=== PATIENT | female | born 1955 | race Caucasian/White ===

== ENCOUNTER 2023-11-29 23:09 | Inpatient (IN) | payer OTHER, MEDICARE, SELFPAY ==
--- NOTE | ~2023-11-29 | CT_ITS ---
CT scan of the right lower extremity CLINICAL HISTORY: Erythema and warmth TECHNIQUE: Following intravenous administration of 100 cc of Omnipaque 350 contrast material, axial i maging of the right lower extremity was performed from the level of the right pelvis/hip through the right foot. Sagittal and coronal reformatted images were constructed. FINDINGS: No fracture or dislocation seen. Visualized joint spaces are intact. No distinct periosteal reaction identified. Orthopedic hardware is present at the distal fibula and distal tibia, related t o prior fracture fixation. There is a 2.3 x 1.3 cm lymph node at the anterior aspect of the proximal right thigh, though with pr obable preserved fatty hilum. Several additional shotty right inguinal lymph nodes are present. There is subcutaneous soft tissue edema/stranding in the anterior proximal right thigh/right inguinal viola on. There is additional nonspecific soft tissue edema and stranding in the popliteal fossa region and to a lesser extent throughout the calf. No focal fluid collection/abscess evident. No soft tissue ma ss identified. Visualized musculature unremarkable. There is diffuse subcutaneous soft tissue edema o f the foot. The right external iliac/common femoral artery, superficial femoral artery, profunda femoral artery, and popliteal artery are patent. No significant stenosis identified. The popliteal trifurcation is un remarkable, and the anterior tibial, posterior tibial, and peroneal arteries all appear patent. Dorsa lis pedis artery is patent. No evidence of DVT identified in the right lower extremity. Incidentally noted in the partially imaged right lower quadrant is possible fluid-filled dilated appe ndix measuring up to 12 mm in diameter. IMPRESSION: Suspected partially imaged dilated appendix in the right lower quadrant, raising suspicion for acute appendicitis. Correlate clinically. Consider dedicated abdominal pelvic CT to further evaluate. No evidence of significant arterial stenosis/occlusion or DVT in the right lower extremity. Mildly prominent right inguinal lymph nodes with subcutaneous gas stranding in this region, nonspecif ic. Findings could reflect an infectious/inflammatory process. Additional nonspecific soft tissue edema in the popliteal fossa, and to a lesser extent throughout th e calf. Findings could reflect cellulitis or other soft tissue infection versus bland edema. Case discussed with Dr. Arce at the time of this reading. Reviewed, dictated and finalized at location . IMPRESSION: Suspected partially imaged dilated appendix in the right lower quadrant, allie garner suspicion for acute appendicitis. Correlate clinically. Consider dedicated ab dominal pelvic CT to further evaluate. No evidence of significant arterial stenosis/occlusion or DVT in the right lowe r extremity. Mildly prominent right inguinal lymph nodes with subcutaneous gas stranding in this region, nonspecific. Findings could reflect an infectious/inflammatory pro cess. Additional nonspecific soft tissue edema in the popliteal fossa, and to a lesse r extent throughout the calf. Findings could reflect cellulitis or other soft t issue infection versus bland edema. Case discussed with Dr. Arce at the time of this reading.
--- NOTE | ~2023-11-29 | US_ITS ---
EXAMINATION: US venous doppler LE RT DATE: 11/30/2023 07:45 INDICATION: Right lower limb swelling. TECHNIQUE: Grayscale ultrasound images without and with compression and Doppler ultrasound images of the right lower extremity veins were obtained. COMPARISON: None. FINDINGS: The visualized portions of right common femoral vein, profunda (deep) femoral vein, femoral vein, pop liteal vein, peroneal veins, posterior tibial veins, and greater saphenous vein outflow are patent. IMPRESSION: 1. No deep venous thrombosis. Reviewed, dictated and finalized at location A.
--- NOTE | ~2023-11-29 | CT_ITS ---
Non-contrast CT scan of the Abdomen and Pelvis Clinical indication: Right inguinal/right lower quadrant pain Technique: 2.5 mm axial scans were obtained through the abdomen and pelvis without intravenous or or al contrast. Dose reduction technique was used on this scan by utilizing automated exposure control a nd iterative reconstruction technique. The dose-length product (DLP) was 554.56 mGy-cm. Findings: Images through the lung bases reveal mild right basilar atelectatic change. Small inferior hepatic cyst present. The spleen, pancreas, gallbladder, kidneys, and adrenals appear normal. There are atherosclerotic calcifications of the aorta. There is no evidence of bowel obstruction. Appendix is dilated to 11 mm, suspicious for early acute a ppendicitis. No abscess or free air. Images through the pelvis were performed. There is no evidence of ascites or lymphadenopathy. Urinary bladder unremarkable. No adnexal mass evident. Prominently distended at the proximal anterior right thigh. Impression: Findings suspicious for early acute appendicitis, as detailed above. No abscess or free air. Reviewed, dictated and finalized at [facility]. Impression: Findings suspicious for early acute appendicitis, as detailed above. No abscess or free air.
--- NOTE | ~2023-11-29 | CT_ITS ---
EXAMINATION: CT LE RT w con DATE: 12/05/2023 15:27 INDICATION: Right lower limb swelling and cellulitis. TECHNIQUE: Computed tomography (CT) of the right lower limb was performed with 100 mL Omnipaque 350 i ntravenous contrast. Automated exposure control and iterative reconstruction technique were employed. The dose-length product was 1832.38 mGy-cm. COMPARISON: Ultrasound 11/30/2023, CT 11/30/2023 FINDINGS: There is facet bone alignment is normal. No fracture. There is plate and screw fixation of distal tibia and fibula. There are screws in medial malleolus. There is widespread subcutaneous edema of right lower limb with areas of skin thickening. No abscess. There is no significant stenosis of t he arteries. The veins are unremarkable. IMPRESSION: 1. No abscess. Reviewed, dictated and finalized at location A. IMPRESSION: 1. No abscess.
--- NOTE | ~2023-11-29 | CT_ITS ---
EXAMINATION: CTA chest PE protocol DATE: 12/01/2023 18:35 INDICATION: Lower limb swelling. Elevated d-dimer. TECHNIQUE: Computed tomography (CT) pulmonary angiogram of the chest was performed with 100 mL Omnipa que-350 intravenous contrast. Additional 3D reconstructions utilizing coronal maximum intensity proje ction (MIP) were performed. Automated exposure control and iterative reconstruction technique were em ployed. The dose-length product was 214.83 mGy-cm. COMPARISON: 11/30/2023 FINDINGS: No pulmonary embolism. Unchanged linear bands of discoid atelectasis at the right lower lobe and ling cassidy. No pneumonia, pulmonary edema or pleural effusion. Heart size is normal. No pericardial effusion . Thoracic aorta is normal in caliber with no dissection. No pathologically enlarged thoracic lymphad enopathy. Mild thoracic spondylosis. T11 hemangioma. IMPRESSION: 1. No pulmonary embolism or other acute cardiopulmonary disease. Reviewed, dictated and finalized at location A.
[2023-11-29 23:12] VITALS: BP 149/82; PULSE 87; RESP 16; TEMP 36.4; O2SAT 100
--- NOTE | 2023-11-30 02:00 | ECG_ITS ---
Test Date: 2023-11-30 02:27:56 Measurements Intervals [place] Rate: 89 P: 59 IN: 179 QRS: 22 QRSD: 94 T: 48 QT: 337 QTc: 412 Interpretive Statements SINUS RHYTHM POSSIBLE LEFT ATRIAL ENLARGEMENT LOW QRS VOLTAGE IN PRECORDIAL LEADS CANNOT R/O SEPTAL INFARCT, AGE INDETERMINATE BORDERLINE ST ABNORMALITY- ANTEROLAT/INF LEADS BASELINE ARTIFACT- I, III, AVR, AVL, V1-V2 ABNORMAL ECG No previous ECG available for comparison Electronically Signed On 11-30-2023 06:29:18 CDT by Donald Meza D.O.
--- NOTE | 2023-11-30 02:01 | ED.EXTPRO ---
HPI - Extremity Problem General Chief complaint: Extremity Problem,Nontraumatic Stated complaint: right leg swelling, pain Time Seen by Provider: 11/30/23 01:05 Source: patient and family Limitations: no limitations History of Present Illness HPI Narrative: Patient is a 68-year-old female presents to the emergency department complaining of a knot in her right medial thigh with redness and warmth and and appearance of it tracking as well down the medial aspect of her thigh to her lower leg where there is also redness and warmth throughout her distal right lower leg and foot. Patient denies any preceding injuries. Patient states she had a fever today of 101. Patient notes 2 weeks ago she had a sensation of gas in her epigastric region for proximal 1 week that went away and it seemed to travel down to her pubic region for 1 week and that went away yesterday. Patient denies any recent travel. Patient denies history of blood clots. Patient denies any sick contacts. Patient denies chest pain, difficulty breathing, cough, diarrhea, urinary discomfort, abdominal pain, numbness, weakness, history of autoimmune disease. Patient admits to feeling fatigued over the past few weeks. Related Data Allergies Allergy/AdvReac Type Severity Reaction Status Date / Time Penicillins Allergy Unknown Unknown Verified 11/30/23 01:24 Sulfa (Sulfonamide Allergy Unknown Unknown Verified 11/30/23 01:24 Antibiotics) Review of Systems Review of Systems: A 10 system review of systems was completed on the patient and is negative except for what is stated in the HPI. Nursing and ancillary documentation was reviewed. PMFSH Comments At time of signature, I have reviewed and agree with nursing past medical, surgical, social and family history unless otherwise noted. Please see the nursing chart for further information. There is no relevant family history pertinent to the presenting complaint. Exam Narrative: CONST: No acute distress. Well nourished. HENMT: Head is normocephalic and atraumatic. Moist mucous membranes. No posterior oropharynx erythema. EYES: No conjunctival icterus, injection, or pallor. PERRL. NECK: No meningeal signs. RESP: Able to speak in full sentences. Normal respiratory effort. CTAB. CARDIO: Regular rate. Regular rhythm. 2+ DP and radial pulses bilaterally. GI: Nondistended. No tenderness to palpation. Soft. : No CVA tenderness to palpation. SKIN: Mild erythema and warmth and mild tenderness to palpation of the right proximal medial thigh with mild induration, no crepitus or fluctuance, there appears to be a scant amount of tracking redness along the medial thigh distally from this area and then there is redness and warmth along the anterior distal right lower leg and the dorsum of the right foot. All of the areas of erythema johanny. NEURO: Oriented x3. Moves all extremities. EXTREM/MSK/BACK: Trace bilateral lower extremity pitting edema. PSYCH: Normal affect. Course Vital Signs Vital signs: Vital Signs Temperature 97.6 F 11/29/23 23:12 Pulse Rate 87 11/29/23 23:12 Respiratory Rate 16 11/29/23 23:12 Blood Pressure 149/82 H 11/29/23 23:12 Pulse Oximetry 100 11/29/23 23:12 Oxygen Delivery Room Air 11/29/23 23:12 Temperature 99.3 F 11/30/23 07:08 Pulse Rate 81 11/30/23 06:36 Respiratory Rate 18 11/30/23 06:36 Blood Pressure 134/83 11/30/23 06:36 Pulse Oximetry 100 11/30/23 06:36 Oxygen Delivery Room Air 11/29/23 23:12 MDM - Extremity (Nontraumatic) MDM Narrative Medical decision making narrative: Patient presents with the above complaint. Initial vitals are remarkable for no significant abnormalities. Physical examination as noted above. Differential diagnosis includes was not limited to: Cellulitis, lymphangitis, DVT, ACS, metabolic derangement, UTI. Plan discussed: Laboratory analysis, EKG, CT lower extremity. CT of the abdomen pelvis obtained given the possibl
[2023-11-30] MEDS: ACETAMINOPHEN 500 MG TABLET 1000 MG PO (02:22)
[2023-11-30 02:38] LABS: Basophils Percent Auto 0.3 % (0.2-1.2); Eosinophils Percent Auto 0.1 % (0-4.4); Hematocrit 44.5 % (37.0-47.0); Hemoglobin 15.3 g/dL (12.0-15.0); Immature Granulocyte Absolute 0.07 K/mm3 (0.00-0.031); Immature Granulocyte Percent A 0.5 % (0-0.5); Lymphocytes Absolute Auto 0.92 K/mm3 (0.9-3.2); Lymphocytes Percent Auto 7.1 % (18.3-44.2); Mean Corpuscular HGB Conc 34.4 g/dl (32-36); Mean Corpuscular Hemoglobin 31.4 pg (26-34); Mean Corpuscular Volume 91.2 fl (80-100); Mean Platelet Volume 8.7 fl (7.4-10.4); Monocytes Absolute Auto 0.4 K/mm3 (0.1-0.6); Monocytes Percent Auto 2.9 % (2.6-8.5); Neutrophils Absolute Auto 11.5 K/mm3 (1.3-6.7); Neutrophils Percent Auto 89.1 % (45.5-73.1); Platelet Count Result 236 k/mm3 (150-375); Red Blood Count 4.88 M/mm3 (4.2-5.4); Red Cell Distribution Width 13.1 % (11.5-14.5)
[2023-11-30 02:48] LABS: Lipase 38 U/L (23-300); Magnesium 1.9 mg/dL (1.6-2.3)
[2023-11-30 02:55] LABS: INR 1.1; Prothrombin Time 14.4 Seconds (11.1-14.7)
[2023-11-30 02:56] LABS: Lactic Acid Reflex 1.3 mmol/L (0.7-2.0); Partial Thromboplastin Time 33.3 Seconds (22.3-36.8)
[2023-11-30 03:00] LABS: Troponin I < 0.012 ng/mL (0.000-0.034)
[2023-11-30 03:14] LABS: Alanine Aminotransferase 50 U/L (6-35); Albumin Level 4.6 g/dL (3.5-5.1); Alkaline Phosphatase 108 U/L (38-126); Anion Gap 13 mmol/L (4-12); Aspartate Amino Transferase 64 U/L (14-36); Bilirubin,Total 0.6 mg/dL (0.2-1.3); Blood Urea Nitrogen 10 mg/dL (7-17); CRP 7.7 mg/dL (<1.0); Calcium 8.9 mg/dL (8.4-10.2); Carbon Dioxide 25 mmol/L (22-30); Chloride 96 mmol/L (98-107); Creatine Kinase 50 U/L (30-135); Estimated CRCL calculation 65 ml/min; Estimated Glomerular Filt Rate > 60; Glucose 106 mg/dL (65-110); Potassium 3.8 mmol/L (3.4-5.0); Sodium 134 mmol/L (137-145)
[2023-11-30 05:00] LABS: Appearance Urine Turbid (Clear); Bacteria Urine 4+ /hpf; Bilirubin Urine Negative (Negative); Blood Urine 2+ (Negative); Color Urine Yellow (Yellow); Glucose Urine UA Negative (Negative); Ketones Urine 2+ mg/dL (Negative); Leukocyte Esterase Ur 3+ LEU/UL (Negative); Nitrate Urine Positive (Negative); Non Pathogenic Casts 0-2; Protein Urine 1+ mg/dL (Negative); RBC Urine 0-2 /hpf (0-2); Specific Grav Ur 1.019 (1.001-1.035); Squamous Epithelial Cell Urine Occasional /hpf (Few); Urobilinogen Urine 0.2 mg/dL (<2.0); WBC Urine >100 /hpf (0-3); pH Urine 5.5 (5.0-9.0)
[2023-11-30 05:19] LABS: Add Urine Microscopic? YES
[2023-11-30] MEDS: ENOXAPARIN 80 MG/0.8 ML SYRINGE SUB-Q (06:10)
[2023-11-30 06:36] VITALS: BP 134/83; PULSE 81; RESP 18; O2SAT 100
[2023-11-30 07:08] VITALS: TEMP 37.4
[2023-11-30] MEDS: DEXTROSE 5%/0.9% SOD CHL 1,000 ML 100 ML IV CONT (08:51)
--- NOTE | 2023-11-30 08:57 | PM.IMHP ---
H&P: HPI History of Present Illness Date/Time: 11/30/23 08:57 Chief Complaint: Right leg swelling and pain, abdomen pain Narrative: 68 years old lady with history of hypertension, high seizure, breast cancer, present ED with a chief complaint of redness, swelling of the right lower extremity. Patient noticed redness, swelling and pain of right thigh yesterday, and redness and swelling pain develops quickly down to the lower extremity. Patient has intermittent fever and chills. And patient also has intermittent abdomen pain locating in epigastric and moving down to the suprapubic region in past 2 weeks. Patient denies chest pain shortness of breath, headache, focal weakness. Patient had fever 101 and home. Patient came to ED for evaluation treatment. Upon arrival to ED, patient had low-grade fever 99.3, leukocytosis 15,300 with left shift, UA shows pyuria, CT scan suggest early acute appendicitis. 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 Surgical History Surgical History History of brain surgery Family History Family History Father Diverticulitis Sibling Diverticulitis Other Appendicitis with abscess Appendicitis Social History Social History Smoking status: Never smoker Alcohol intake: never Substance use: never Substance use type: does not use Do You Feel Safe in your Home?: Yes Lack of Transportation: No Lack of Food: Never True Current Housing: I Have Housing Concerned About Future Housing: No Difficulty Paying Gas/Electric Bills: No Difficulty Paying for Meds: No Currently Unemployed: No Education: Master's Degree or Higher Difficulty w/ Childcare or Family Care: No Spiritual care concerns: No Meds Home Medications and Allergies Home Medications Medication Instructions Recorded Confirmed Type amitriptyline 50 mg tablet 50 mg PO DAILY 11/30/23 11/30/23 History estradiol 0.01% (0.1 mg/gram) 1 applic vaginal 3XW 11/30/23 11/30/23 History vaginal cream lamotrigine 150 mg tablet 150 mg PO BID 11/30/23 11/30/23 History lisinopril 20 1 tablet PO DAILY 11/30/23 11/30/23 History mg-hydrochlorothiazide 25 mg tablet raloxifene 60 mg tablet 60 mg PO DAILY 11/30/23 11/30/23 History Allergies Allergy/AdvReac Type Severity Reaction Status Date / Time Penicillins Allergy Unknown Unknown Verified 11/30/23 01:24 Sulfa (Sulfonamide Allergy Unknown Unknown Verified 11/30/23 01:24 Antibiotics) Vital Signs Vital Signs - 24 hr 11/29/23 23:12 11/30/23 06:36 11/30/23 07:08 Temperature 97.6 F 99.3 F Pulse Rate 87 81 Respiratory Rate 16 18 Blood Pressure 149/82 H 134/83 Pulse Oximetry 100 100 Oxygen Delivery Room Air Exam Narrative: GENERAL: Pleasant, in no acute distress. Well-nourished. - EYES: EOMI. Anicteric. - HENT: Moist mucous membranes. - LUNGS: Clear to auscultation bilaterally, no wheezing, rhonchi, or rales. - CARDIOVASCULAR: Regular rate and rhythm. No murmur. No JVD. - ABDOMEN: Soft, right lower quadrant tender and non-distended. No palpable masses. - EXTREMITIES: No edema. Peripheral pulses 2+. Non-tender. - NEUROLOGIC: No focal neurological deficits. CN II-XII grossly intact. - PSYCHIATRIC: Awake, Alert and oriented x 3. Appropriate mood and affect. - SKIN: Redness tender swelling of the skin of inner thigh down to the lower extremity above the ankle of right lower extremity - LYMPH: No cervical lymphadenopathy. H&P: Results Labs Labs: Short CBC 11/30/23 Range/Units 02:31 WBC 13.0 H (4.5-10.0) K/mm3 Hgb 15.3 H (12.0-15.0) g/dL Hct 44.5 (37.0-47.0)
[2023-11-30 09:05] VITALS: BP 156/85; PULSE 95; RESP 17; O2SAT 99
[2023-11-30] MEDS: DOXYCYCLINE 100 MG/NS 100 ML 100 MG/100 ML BAG IVPB (09:42)
[2023-11-30 10:11] VITALS: BMI 28.2
--- NOTE | 2023-11-30 10:15 | ADMGEN ---
This patient, Devora Martinez, was admitted to [facility] Surg Room 311-01 at 1000. Patient/family oriented to hospital policies and general routines including ID bracelet, bed and alarms, visiting hours, pain management, procedures, bathroom and other care routines, personal items, smoking policy, room service/diet, and visiting hours. Information on how to activate the Rapid Response Team has been discussed. Patient/Family are encouraged to report perceived risks to care and to ask questions if they do not understand what they are told or what they should do.
--- NOTE | 2023-11-30 10:38 | PM.CNGS ---
Assessment and Plan Assessment and plan (1) Abnormal CT of the abdomen: Code(s): R93.5 - Abnormal findings on diagnostic imaging of other abdominal regions, including retroperitoneum Status: Acute Assessment and Plan: We were consulted for incidental findings of a dilated appendix on the CT scan. The appendix is dilated to 11 mm but without any inflammatory stranding or other findings to suggest acute appendicitis. She is not having any abdominal pain and no tenderness on exam. No acute surgical abdomen that would require an emergent appendectomy. We would recommend to continue with IV antibiotics and monitor clinically. Repeat labs tomorrow morning. (2) Leukocytosis: Code(s): D72.829 - Elevated white blood cell count, unspecified Status: Acute Assessment and Plan: Leukocytosis with WBC count 13,000. Vital signs stable in the ER and she was afebrile on arrival. Likely related to the cellulitis in the right lower extremity and possibly the UTI (3) Acute UTI: Code(s): N39.0 - Urinary tract infection, site not specified Status: Acute Assessment and Plan: Continue IV antibiotics. Urine culture pending. (4) Lymphadenopathy, inguinal: Code(s): R59.0 - Localized enlarged lymph nodes Status: Acute (5) Cellulitis: Qualifiers: Laterality: right Site of cellulitis: extremity Site of cellulitis of extremity: lower extremity Qualified Code(s): L03.115 - Cellulitis of right lower limb Code(s): L03.90 - Cellulitis, unspecified Status: Acute Assessment and Plan: Continue IV antibiotics per Hospitalist. Plan I have discussed the patient's case and plan of care with Dr. Treviño. Thank you for allowing us to see the patient in consultation and we will continue to follow along with you. History of Present Illness Consult details Consult date: 11/30/23 Reason for consult: other (Dilated appendix on CT) Requesting physician: Janeth Welch MD Narrative: This is a 68-year-old female who presented to the ED today with complaints of right lower extremity swelling and redness. She reports having abdominal pain for the past 2 weeks. Initially, her abdominal pain was in the upper abdomen and was mild. No aggravating or alleviating factors. After about a week, the pain migrated to her lower abdomen primarily in the suprapubic area. She also noticed dysuria. She reports a history of frequent UTIs requiring treatment about every 6-8 weeks. Her pain continued to be constant, but was tolerable. She developed a fever of 101F two days ago and called her primary care provider and spoke with someone on the phone but was not evaluated in person. She was prescribed Macrobid, which she finished 3 days ago, and they ordered outpatient labs for possible Lyme's disease. She was not started on any other treatment. She reports having concerns for a tick bite, because [place] and are exposed to ticks often. She has had multiple ticks on her but has not noticed a rash and is unable to tell how long they have been attached due to frequent exposure to the outdoors. She went to have the labs drawn yesterday and after having the labs, she noticed some swelling and tenderness in her right groin. Yesterday was the first day her abdominal pain was better. She reports it had completely resolved with no pain yesterday. She noticed some erythema in her upper medial right thigh and groin swelling. She went home and by the time she showed her and took her sock off, the redness and swelling had extended down her right leg to her foot. He then prompted her to come into the ED for evaluation. Labs showed a WBC count of 13,000, PT 14.4, INR 1.1, PTT 33.3, D-dimer 3.5, AST 64, ALT 50, CRP 7.7. Troponin negative. UA grossly abnormal and with further questions, the patient reports her dysuria has returned after finishing the macrobid a few days ago. CT scan of the right lower extremi
[2023-11-30] MEDS: metroNIDAZOLE 500 MG/ISO 100ML 500 MG/100 ML BAG 100 MG IVPB ×2 (11:35→20:51)
[2023-11-30] MEDS: lamoTRIgine 50 MG TABLET PO ×2 (13:04→20:52)
[2023-11-30] MEDS: lamoTRIgine 100 MG TABLET PO ×2 (13:04→20:52)
[2023-11-30 14:00] VITALS: BP 140/77; PULSE 103; RESP 20; TEMP 38.2; O2SAT 96
[2023-11-30] MEDS: hydroCHLOROthiazide 12.5 MG CAPSULE PO (14:26)
[2023-11-30] MEDS: lisinopriL 20 MG TABLET PO (14:26)
[2023-11-30] MEDS: CEFEPIME 2 GM/NS 50 ML 2 GM/50 ML BAG IVPB ×2 (15:00→22:06)
[2023-11-30] MEDS: VANCOMYCIN 1,500 MG/NS 500 ML 1,500 MG/500 ML BAG 250 MG IVPB (16:09)
[2023-11-30] MEDS: oxyCODONE/ACETAMINOPHEN (*CRX) 5-325 MG TABLET 1 TABLET PO (16:30)
[2023-11-30] MEDS: ONDANSETRON INJ 4 MG/2 ML VIAL IV PUSH (20:57)
[2023-11-30 21:00] VITALS: O2SAT 99
[2023-11-30 21:13] VITALS: BP 115/64; PULSE 87; RESP 12; TEMP 36.8; O2SAT 99
[2023-12-01] MEDS: DEXTROSE 5%/0.9% SOD CHL 1,000 ML 100 ML IV CONT ×2 (01:37→21:38)
[2023-12-01] MEDS: metroNIDAZOLE 500 MG/ISO 100ML 500 MG/100 ML BAG 100 MG IVPB ×3 (01:38→17:03)
[2023-12-01 05:06] VITALS: BP 128/74; PULSE 99; RESP 14; TEMP 37; O2SAT 91
[2023-12-01] MEDS: CEFEPIME 2 GM/NS 50 ML 2 GM/50 ML BAG IVPB ×3 (05:23→21:35)
[2023-12-01 06:17] LABS: Basophils Percent Auto 0.3 % (0.2-1.2); Eosinophils Percent Auto 0.1 % (0-4.4); Hematocrit 36.7 % (37.0-47.0); Hemoglobin 12.5 g/dL (12.0-15.0); Immature Granulocyte Absolute 0.07 K/mm3 (0.00-0.031); Immature Granulocyte Percent A 0.6 % (0-0.5); Lymphocytes Absolute Auto 1.69 K/mm3 (0.9-3.2); Lymphocytes Percent Auto 15.3 % (18.3-44.2); Mean Corpuscular HGB Conc 34.1 g/dl (32-36); Mean Corpuscular Hemoglobin 30.6 pg (26-34); Mean Corpuscular Volume 89.7 fl (80-100); Monocytes Absolute Auto 0.7 K/mm3 (0.1-0.6); Monocytes Percent Auto 6.3 % (2.6-8.5); Neutrophils Absolute Auto 8.5 K/mm3 (1.3-6.7); Neutrophils Percent Auto 77.4 % (45.5-73.1); Platelet Count Result 200 k/mm3 (150-375); Red Blood Count 4.09 M/mm3 (4.2-5.4); Red Cell Distribution Width 13.5 % (11.5-14.5)
[2023-12-01 06:30] LABS: Anion Gap 8 mmol/L (4-12); Blood Urea Nitrogen 9 mg/dL (7-17); Calcium 7.7 mg/dL (8.4-10.2); Carbon Dioxide 23 mmol/L (22-30); Chloride 98 mmol/L (98-107); Estimated CRCL calculation 65 ml/min; Estimated Glomerular Filt Rate > 60; Glucose 107 mg/dL (65-110); Potassium 3.2 mmol/L (3.4-5.0); Sodium 129 mmol/L (137-145)
[2023-12-01] MEDS: VANCOMYCIN 1,500 MG/NS 500 ML 1,500 MG/500 ML BAG 250 MG IVPB (06:38)
[2023-12-01] MEDS: RALOXIFENE HCL (*CHEMO) 60 MG TABLET PO (08:39)
[2023-12-01] MEDS: lisinopriL 20 MG TABLET PO (08:39)
[2023-12-01] MEDS: lamoTRIgine 100 MG TABLET PO ×2 (08:39→21:35)
[2023-12-01] MEDS: lamoTRIgine 50 MG TABLET PO ×2 (08:39→21:35)
[2023-12-01] MEDS: hydroCHLOROthiazide 12.5 MG CAPSULE PO (08:39)
[2023-12-01] MEDS: AMITRIPTYLINE HCL 25 MG TABLET 50 MG PO (08:39)
[2023-12-01] MEDS: oxyCODONE/ACETAMINOPHEN (*CRX) 5-325 MG TABLET 1 TABLET PO ×3 (11:06→21:35)
[2023-12-01] MEDS: cefTRIAXone 2 GM/NS 100 ML 2 GM/100 ML BAG IVPB (12:46)
--- NOTE | 2023-12-01 13:23 | PM.PNGS ---
Progress Note: A&P Assessment and Plan (1) Abnormal CT of the abdomen: Code(s): R93.5 - Abnormal findings on diagnostic imaging of other abdominal regions, including retroperitoneum Status: Acute Assessment and Plan: We were consulted for incidental findings of a dilated appendix on the CT scan. The appendix is dilated to 11 mm but without any inflammatory stranding or other findings to suggest acute appendicitis. She is still not having any abdominal pain and no tenderness on exam. No acute surgical abdomen that would require an emergent appendectomy. Her WBC count is down to 11,000 today from 13,000 yesterday. Continue IV antibiotics and monitor clinically. No plans for surgical intervention at this time. (2) Leukocytosis: Code(s): D72.829 - Elevated white blood cell count, unspecified Status: Acute Assessment and Plan: Improving. More likely related to the cellulitis and UTI. Continue antibiotics per primary service. (3) Acute UTI: Code(s): N39.0 - Urinary tract infection, site not specified Status: Acute Assessment and Plan: Continue antibiotics per Hospitalist. (4) Cellulitis: Qualifiers: Laterality: right Site of cellulitis: extremity Site of cellulitis of extremity: lower extremity Qualified Code(s): L03.115 - Cellulitis of right lower limb Code(s): L03.90 - Cellulitis, unspecified Status: Acute Assessment and Plan: Continue IV antibiotics per Hospitalist. Plan I have discussed the patient's case and plan of care with Dr. Treviño. Subjective Subjective Date/Time Seen: 12/01/23 13:23 Patient reports: no new complaints, tolerating a regular diet and fever (Tmax 100.7F at 1400 yesterday) Interval history: Still no abdominal pain today or through the night. Feels like her right groin and right leg pain and swelling is worse today. WBC down to 11,000 from 13,000. Exam Const: General: no acute distress Orientation/consciousness: patient oriented x3 GI: Inspection: non-distended GI Palp: Yes Soft to palpation, No Tenderness to palpation present (GI) (no tenderness in the abdomen even with deep palpation in the RLQ), No Guarding due to palpation present (GI) and No Rebound tenderness present Auscultation: normal bowel sounds : Other: Right inguinal lymphadenopathy noted, nontender Skin: Other: Diffuse right lower extremity edema that is mild and progressively gets worse into the lower leg/foot. Erythema in the right medial thigh that extends down the entire lower leg and into the foot. Erythema is more widespread in the thigh today and still circumferential around the lower leg and calf. Appearance of the darker red/purple petechial rash in the lower leg and foot is unchanged. No pain with movement of her ankle or toes and full ROM. Slight decreased flexion of the knee due to swelling. She has more tenderness today in the right lower leg more focally in the posterior calf. Sensation in the right lower leg completely intact. No wounds, no drainage, no crepitus, no fluctuant areas. Extrem: Right lower extremity: edema Objective Data Vital Signs Vital Signs: Vital Signs - 24 hr 11/30/23 14:00 11/30/23 21:13 11/30/23 21:00 Temperature 100.7 F H 98.2 F Pulse Rate 103 H 87 Respiratory Rate 20 12 Blood Pressure 140/77 115/64 Pulse Oximetry 96 99 99 Oxygen Delivery Room Air 11/30/23 20:00 12/01/23 05:06 12/01/23 08:00 Temperature 98.6 F Pulse Rate 99 Respiratory Rate 14 Blood Pressure 128/74 Pulse Oximetry 91 Oxygen Delivery Room Air Room Air Intake/Output Intake/Output: Intake & Output 11/28/23 11/29/23 11/30/23 12/01/23 23:59 23:59 23:59 23:59 Intake Total 1230 2300 Balance 1230 2300 Meds/Results Medications: Active Medications Generic Name Dose Route Start Last Admin Trade Name Freq PRN Reason Stop Dose Admin Amitriptyline HCl 50 mg 12/01/23 09:00
--- NOTE | 2023-12-01 14:46 | PM.IMPN ---
Progress Note: A&P Assessment and Plan (1) Sepsis: Code(s): A41.9 - Sepsis, unspecified organism Status: Acute Assessment and Plan: 12/01/23: Patient originally meeting sepsis criteria with a temp 100.7?, pulse 103, respiratory rate 20, initial white blood cell count 13.0, multiple sources infection including cellulitis, acute appendicitis, urinary tract infection Blood and urine cultures were obtained and are pending Currently on cefepime, Flagyl, vancomycin, clindamycin Tick-borne illness panel pending Initial lactate 1.3 CRP 7.7 (2) Cellulitis: Qualifiers: Laterality: right Site of cellulitis: extremity Site of cellulitis of extremity: lower extremity Qualified Code(s): L03.115 - Cellulitis of right lower limb Code(s): L03.90 - Cellulitis, unspecified Status: Acute Assessment and Plan: 12/01/23: Extensive cellulitis from the groin to the ankle of her right leg with erythema, warmth, tenderness, swelling that is becoming circumferential Continue IV antibiotics General surgery following (3) Appendicitis: Qualifiers: Appendicitis type: unspecified Qualified Code(s): K37 - Unspecified appendicitis Code(s): K37 - Unspecified appendicitis Status: Acute Assessment and Plan: 12/01/23: CT of the abdomen pelvis showed acute appendicitis Treating conservatively with IV antibiotics No surgical intervention needed at this time, general surgery following (4) Acute UTI: Code(s): N39.0 - Urinary tract infection, site not specified Status: Acute Assessment and Plan: 12/01/23: UA showed 1+ urine protein, 2+ urine ketones, 2+ urine blood, positive nitrate, 3+ leukocytes, greater than 100 urine WBC, 4+ bacteria. Urine culture pending Continue IV antibiotics (5) Lymphadenopathy, inguinal: Code(s): R59.0 - Localized enlarged lymph nodes Status: Acute Assessment and Plan: 12/01/23: Noted on CT Likely reactive to systemic infections (6) Elevated d-dimer: Code(s): R79.89 - Other specified abnormal findings of blood chemistry Status: Acute Assessment and Plan: 12/01/23: D-dimer 3.5 Venous Doppler bilateral lower extremities were negative for DVT CTA the chest ordered for rule out PE, low concern Time Spent With Patient Time with patient: Greater than 35 minutes Subjective Date/time seen: 12/01/23 14:46 Interval history: Interval history: This is a 68-year-old female who presented to the hospital on 11/30/2023 with right leg swelling, pain and abdomen pain. Workup in the hospital included a lower extremity CT which shown a dilated appendix in the right lower quadrant raising suspicion for acute appendicitis, no evidence of significant arterial stenosis/occlusion or DVT in the right lower extremity, mild prominent right inguinal lymph nodes with subcutaneous gas stranding in the region, additional nonspecific soft tissue edema in the popliteal fossa and to a lesser extent throughout the calf. Abdomen pelvis CT shown findings for early acute appendicitis. Venous Doppler was negative for DVT. Initial labs showed a white blood cell count of 13.0, hemoglobin 15.3, D-dimer 3.5, sodium 134, AST 64, ALT 50, troponin was negative, lipase 38. UA was obtained and showed 1+ urine protein, 2+ urine ketones, 2+ urine blood, positive nitrate, 3+ leukocytes, greater than 100 urine wbc's, 4+ urine bacteria. Tick-borne disease panel pending. Urine culture is also pending. EKG showing normal sinus rhythm with QTC of 384 and rate 89. Patient was originally started on cefepime, Flagyl, doxycycline. She was changed to cefepime, Flagyl, vancomycin yesterday. General surgery was consulted for the acute appendicitis and right lower extremity cellulitis and agrees that there is nothing surgical on either at this time. 12/01/23: Patient denies any fever, chills, nausea, vomiting, diarrhea, abdominal pain, chest pain, arun
[2023-12-01 14:55] VITALS: BP 135/81; PULSE 86; RESP 16; TEMP 36.7; O2SAT 99
[2023-12-01] MEDS: CLINDAMYCIN 900 MG/D5W 50 ML 900 MG/50 ML PIGGYBACK 50 MG IVPB ×2 (17:00→23:06)
[2023-12-01 22:00] VITALS: BP 144/82; PULSE 91; RESP 18; TEMP 36.8; O2SAT 100
[2023-12-02] MEDS: VANCOMYCIN 1,500 MG/NS 500 ML 1,500 MG/500 ML BAG 200 MG IVPB (00:36)
[2023-12-02] MEDS: metroNIDAZOLE 500 MG/ISO 100ML 500 MG/100 ML BAG 100 MG IVPB ×2 (03:09→09:15)
[2023-12-02] MEDS: CEFEPIME 2 GM/NS 50 ML 2 GM/50 ML BAG IVPB ×3 (05:51→21:06)
[2023-12-02 05:55] VITALS: BP 139/73; PULSE 91; RESP 16; TEMP 36.7; O2SAT 97
[2023-12-02 05:56] LABS: Estimated CRCL calculation 65 ml/min; Estimated Glomerular Filt Rate > 60
[2023-12-02] MEDS: CLINDAMYCIN 900 MG/D5W 50 ML 900 MG/50 ML PIGGYBACK 50 MG IVPB (06:39)
--- NOTE | 2023-12-02 07:40 | P.PNIM_ITS ---
Progress Note: A&P Assessment and Plan (1) Sepsis: Code(s): A41.9 - Sepsis, unspecified organism Status: Acute Assessment and Plan: 12/01/23: * Patient originally meeting sepsis criteria with a temp 100.7?, pulse 103, respiratory rate 20, initial white blood cell count 13.0, multiple sources infection including cellulitis, acute appendicitis, urinary tract infection * Blood and urine cultures were obtained and are pending * Currently on cefepime, Flagyl, vancomycin, clindamycin * Tick-borne illness panel pending * Initial lactate 1.3 * CRP 7.7 12/02/23: * Blood cultures showing no growth today preliminary read * Culture showing E coli preliminary read * WBC today down to 10.6 * Serology is still pending on the tick-borne illness panel (2) Cellulitis: Qualifiers: Laterality: right Site of cellulitis: extremity Site of cellulitis of extremity: lower extremity Qualified Code(s): L03.115 - Cellulitis of right lower limb Code(s): L03.90 - Cellulitis, unspecified Status: Acute Assessment and Plan: 12/01/23: * Extensive cellulitis from the groin to the ankle of her right leg with erythe ma, warmth, tenderness, swelling that is becoming circumferential * Continue IV antibiotics * General surgery following 12/02/23: * White blood cell count today down to 10.6, C reactive protein 24.4 * Right leg cellulitis appears to be improving however there are notable blisters to the back of her right calf which is likely due to friction * Place PICC line due to poor access * Continue IV antibiotics for now, consider transitioning to oral tomorrow * General surgery following (3) Appendicitis: Qualifiers: Appendicitis type: unspecified Qualified Code(s): K37 - Unspecified appendicitis Code(s): K37 - Unspecified appendicitis Status: Acute Assessment and Plan: 12/01/23: * CT of the abdomen pelvis showed acute appendicitis * Treating conservatively with IV antibiotics * No surgical intervention needed at this time, general surgery following 12/02/23: * General surgery following * Continue IV antibiotic (4) Acute UTI: Code(s): N39.0 - Urinary tract infection, site not specified Status: Acute Assessment and Plan: 12/01/23: * UA showed 1+ urine protein, 2+ urine ketones, 2+ urine blood, positive nitrate, 3+ leukocytes, greater than 100 urine WBC, 4+ bacteria. * Urine culture pending * Continue IV antibiotics 12/02/23: * Urine culture showing E coli preliminary read * Continue IV antibiotics (5) Lymphadenopathy, inguinal: Code(s): R59.0 - Localized enlarged lymph nodes Status: Acute Assessment and Plan: 12/01/23: * Noted on CT * Likely reactive to systemic infections 12/02/23: * No change (6) Elevated d-dimer: Code(s): R79.89 - Other specified abnormal findings of blood chemistry Status: Acute Assessment and Plan: 12/01/23: * D-dimer 3.5 * Venous Doppler bilateral lower extremities were negative for DVT * CTA the chest ordered for rule out PE, low concern 12/02/23: * Chest CTA was negative for PE Time Spent With Patient Time with patient: 25 - 35 minutes Subjective Date/time seen: 12/02/23 07:40 Interval history: Interval history: This is a 68-year-old female who presented to the hospital on 11/30/2023 with right leg swelling, pain and abdomen pain. Workup in the hospital included a lower extremity CT which shown a dilated appendix in the right lower quadrant raising suspicion f
--- NOTE | 2023-12-02 07:40 | PM.IMPN ---
Progress Note: A&P Assessment and Plan (1) Sepsis: Code(s): A41.9 - Sepsis, unspecified organism Status: Acute Assessment and Plan: 12/01/23: Patient originally meeting sepsis criteria with a temp 100.7?, pulse 103, respiratory rate 20, initial white blood cell count 13.0, multiple sources infection including cellulitis, acute appendicitis, urinary tract infection Blood and urine cultures were obtained and are pending Currently on cefepime, Flagyl, vancomycin, clindamycin Tick-borne illness panel pending Initial lactate 1.3 CRP 7.7 12/02/23: Blood cultures showing no growth today preliminary read Culture showing E coli preliminary read WBC today down to 10.6 Serology is still pending on the tick-borne illness panel (2) Cellulitis: Qualifiers: Laterality: right Site of cellulitis: extremity Site of cellulitis of extremity: lower extremity Qualified Code(s): L03.115 - Cellulitis of right lower limb Code(s): L03.90 - Cellulitis, unspecified Status: Acute Assessment and Plan: 12/01/23: Extensive cellulitis from the groin to the ankle of her right leg with erythema, warmth, tenderness, swelling that is becoming circumferential Continue IV antibiotics General surgery following 12/02/23: White blood cell count today down to 10.6, C reactive protein 24.4 Right leg cellulitis appears to be improving however there are notable blisters to the back of her right calf which is likely due to friction Place PICC line due to poor access Continue IV antibiotics for now, consider transitioning to oral tomorrow General surgery following (3) Appendicitis: Qualifiers: Appendicitis type: unspecified Qualified Code(s): K37 - Unspecified appendicitis Code(s): K37 - Unspecified appendicitis Status: Acute Assessment and Plan: 12/01/23: CT of the abdomen pelvis showed acute appendicitis Treating conservatively with IV antibiotics No surgical intervention needed at this time, general surgery following 12/02/23: General surgery following Continue IV antibiotic (4) Acute UTI: Code(s): N39.0 - Urinary tract infection, site not specified Status: Acute Assessment and Plan: 12/01/23: UA showed 1+ urine protein, 2+ urine ketones, 2+ urine blood, positive nitrate, 3+ leukocytes, greater than 100 urine WBC, 4+ bacteria. Urine culture pending Continue IV antibiotics 12/02/23: Urine culture showing E coli preliminary read Continue IV antibiotics (5) Lymphadenopathy, inguinal: Code(s): R59.0 - Localized enlarged lymph nodes Status: Acute Assessment and Plan: 12/01/23: Noted on CT Likely reactive to systemic infections 12/02/23: No change (6) Elevated d-dimer: Code(s): R79.89 - Other specified abnormal findings of blood chemistry Status: Acute Assessment and Plan: 12/01/23: D-dimer 3.5 Venous Doppler bilateral lower extremities were negative for DVT CTA the chest ordered for rule out PE, low concern 12/02/23: Chest CTA was negative for PE Time Spent With Patient Time with patient: 25 - 35 minutes Subjective Date/time seen: 12/02/23 07:40 Interval history: Interval history: This is a 68-year-old female who presented to the hospital on 11/30/2023 with right leg swelling, pain and abdomen pain. Workup in the hospital included a lower extremity CT which shown a dilated appendix in the right lower quadrant raising suspicion for acute appendicitis, no evidence of significant arterial stenosis/occlusion or DVT in the right lower extremity, mild prominent right inguinal lymph nodes with subcutaneous gas stranding in the region, additional nonspecific soft tissue edema in the popliteal fossa and to a lesser extent throughout the calf. Abdomen pelvis CT shown findings for early acute appendicitis. Venous Doppler was negative for DVT. Initial labs showed a white blood cell count of 13.0, hemoglobin 1
--- NOTE | 2023-12-02 07:43 | WPDPN ---
Progress Note: A&P Assessment and Plan (1) Abnormal CT of the abdomen: Code(s): R93.5 - Abnormal findings on diagnostic imaging of other abdominal regions, including retroperitoneum Status: Acute Assessment and Plan: Appendix dilated on CT scan, no pain and no inflammation on CT. No need for surgical management. (2) Cellulitis: Qualifiers: Laterality: right Site of cellulitis: extremity Site of cellulitis of extremity: lower extremity Qualified Code(s): L03.115 - Cellulitis of right lower limb Code(s): L03.90 - Cellulitis, unspecified Status: Acute Assessment and Plan: Stable cellulitis of the RLE, no need for surgical management. IV antibiotics as per hospitalist service. Call again if surgery needs to re-evaluate. Subjective Date/time seen: 12/02/23 07:43 Interval history: Stable. No acute changes overnight. WBC slightly lower today. No abd pain. RLQ redness about the same. Exam Extrem: Other: Right lower extremity redness swelling stable. No fluctuant areas. No draining. Objective Data Vital Signs Vital Signs: Vital Signs - 24 hr 12/01/23 08:00 12/01/23 14:55 12/01/23 22:00 Temperature 36.7 C 36.8 C Pulse Rate 86 91 Respiratory Rate 16 18 Blood Pressure 135/81 144/82 H Pulse Oximetry 99 100 Oxygen Delivery Room Air 12/02/23 05:55 Temperature 36.7 C Pulse Rate 91 Respiratory Rate 16 Blood Pressure 139/73 Pulse Oximetry 97 Oxygen Delivery Intake/Output Intake/Output: Intake & Output 11/29/23 11/30/23 12/01/23 12/02/23 23:59 23:59 23:59 23:59 Intake Total 1230 4190 630 Balance 1230 4190 630 Meds/Results Medications: Active Medications Generic Name Dose Route Start Last Admin Trade Name Freq PRN Reason Stop Dose Admin Amitriptyline HCl 50 mg 12/01/23 09:00 12/01/23 08:39 Amitriptyline Hcl 25 Mg Tablet PO 50 mg DAILY ALFREDO Administration Enoxaparin Sodium 40 mg 12/02/23 09:00 Enoxaparin 40 Mg/0.4 Ml Syringe SUB-Q DAILY [facility] Hydrochlorothiazide 12.5 mg 11/30/23 13:15 12/01/23 08:39 Hydrochlorothiazide 12.5 Mg Capsule PO 12.5 mg DAILY ALFREDO Administration Hydromorphone HCl 0.5 mg 11/30/23 16:07 Hydromorphone Hcl Inj (*Crx) 1 Mg/Ml Syr IV PUSH Q4HR PRN Pain Rated 7-10 Dextrose/Sodium Chloride 1,000 mls @ 100 mls/hr 11/30/23 08:40 12/01/23 21:38 Dextrose 5% Sodium Chloride 0.9% IV CONT 100 mls/hr .Q10H ALFREDO Administration Metronidazole 500 mg in 100 mls @ 100 mls/hr 11/30/23 18:00 12/02/23 04:09 Flagyl 500 Mg/Iso Soln 100 Ml IVPB Infused Q8H ALFREDO Infusion Vancomycin HCl 1,500 mg in 500 mls @ 250 mls/hr 11/30/23 13:00 12/02/23 02:45 Vancomycin 1,500 Mg/Ns 500 Ml IVPB Infused Q18H ALFREDO Infusion Cefepime HCl 2 gm in 50 mls @ 100 mls/hr 12/01/23 15:00 12/02/23 06:21 Maxipime 2 Gm/Ns 50 Ml IVPB Infused Q8HR ALFREDO Infusion Clindamycin Phosphate 900 mg in 50 mls @ 50 mls/hr 12/01/23 16:00 12/02/23 06:39 Cleocin 900 Mg/D5w 50 Ml IVPB 50 mls/hr Q8HR ALFREDO Administration Lamotrigine 100 mg 11/30/23 12:50 12/01/23 21:35 Lamotrigine 100 Mg Tablet PO 100 mg Q12HR ALFREDO Administration Lamotrigine 50 mg 11/30/23 12:50 12/01/23 21:35 Lamotrigine 50 Mg Tablet PO 50 mg Q12HR ALFREDO Administration Lisinopril 20 mg 11/30/23 09:00 12/01/23 08:39 Lisinopril 20 Mg Tablet PO 12/31/23 08:59 20 mg DAILY ALFREDO Administration Ondansetron HCl 4 mg 11/30/23 19:01 11/30/23 20:57 Ondansetron Inj 4 Mg/2 Ml Vial IV PUSH 4 mg Q4HR PRN Administration Nausea Oxycodone/Acetaminophen 1 tablet 11/30/23 16:08 12/01/23 21:35 Oxycodone/Acetaminophen (*Crx) 5-325 Mg Tablet PO 1 tablet Q4H PRN Administration Pain Rated 4-6 Raloxifene HCl 60 mg 12/01/23 09:00 12/01/23 08:39 Raloxifene Hcl (*Chemo) 60 Mg Tablet PO 60 mg DAILY ALFREDO Administration Radiology Results: [facility] Im
[2023-12-02 07:55] LABS: Basophils Absolute Auto 0.1 K/mm3 (0.0-0.1); Basophils Percent Auto 0.5 % (0.2-1.2); Eosinophils Absolute Auto 0.2 K/mm3 (0-0.3); Hematocrit 36.3 % (37.0-47.0); Hemoglobin 12.3 g/dL (12.0-15.0); Immature Granulocyte Absolute 0.12 K/mm3 (0.00-0.031); Immature Granulocyte Percent A 1.1 % (0-0.5); Lymphocytes Absolute Auto 1.63 K/mm3 (0.9-3.2); Lymphocytes Percent Auto 15.4 % (18.3-44.2); Mean Corpuscular HGB Conc 33.9 g/dl (32-36); Mean Corpuscular Hemoglobin 31.5 pg (26-34); Mean Corpuscular Volume 92.8 fl (80-100); Mean Platelet Volume 9.5 fl (7.4-10.4); Monocytes Percent Auto 9.1 % (2.6-8.5); Neutrophils Absolute Auto 7.6 K/mm3 (1.3-6.7); Neutrophils Percent Auto 71.9 % (45.5-73.1); Platelet Count Result 231 k/mm3 (150-375); Red Blood Count 3.91 M/mm3 (4.2-5.4); White Blood Count 10.6 K/mm3 (4.5-10.0)
[2023-12-02 08:14] LABS: Alanine Aminotransferase 44 U/L (6-35); Albumin Level 3.2 g/dL (3.5-5.1); Alkaline Phosphatase 106 U/L (38-126); Anion Gap 8 mmol/L (4-12); Aspartate Amino Transferase 51 U/L (14-36); Bilirubin,Total 0.5 mg/dL (0.2-1.3); Blood Urea Nitrogen 8 mg/dL (7-17); Calcium 7.5 mg/dL (8.4-10.2); Carbon Dioxide 26 mmol/L (22-30); Chloride 98 mmol/L (98-107); Estimated CRCL calculation 65 ml/min; Estimated Glomerular Filt Rate > 60; Glucose 113 mg/dL (65-110); Potassium 3.5 mmol/L (3.4-5.0); Sodium 132 mmol/L (137-145)
[2023-12-02 08:20] LABS: CRP 24.4 mg/dL (<1.0)
[2023-12-02] MEDS: lamoTRIgine 100 MG TABLET PO ×2 (09:15→21:08)
[2023-12-02] MEDS: ENOXAPARIN 40 MG/0.4 ML SYRINGE SUB-Q (09:15)
[2023-12-02] MEDS: lamoTRIgine 50 MG TABLET PO ×2 (09:15→21:08)
[2023-12-02] MEDS: RALOXIFENE HCL (*CHEMO) 60 MG TABLET PO (09:16)
[2023-12-02] MEDS: lisinopriL 20 MG TABLET PO (09:16)
[2023-12-02] MEDS: hydroCHLOROthiazide 12.5 MG CAPSULE PO (09:16)
[2023-12-02] MEDS: oxyCODONE/ACETAMINOPHEN (*CRX) 5-325 MG TABLET 1 TABLET PO ×3 (09:16→21:08)
[2023-12-02] MEDS: AMITRIPTYLINE HCL 25 MG TABLET 50 MG PO (09:16)
[2023-12-02] MEDS: LIDOCAINE HCL 1% PF INJ 5 ML VIAL INFILTRATE (11:00)
[2023-12-02 14:00] VITALS: BP 109/55; PULSE 90; RESP 16; TEMP 36.4; O2SAT 97
[2023-12-02] MEDS: CENTRAL LINE FLUSH 10 ML IV PUSH ×2 (14:59→21:05)
[2023-12-02] MEDS: DEXTROSE 5%/0.9% SOD CHL 1,000 ML 100 ML IV CONT (14:59)
[2023-12-02] MEDS: VANCOMYCIN 1,500 MG/NS 500 ML 1,500 MG/500 ML BAG 250 MG IVPB (21:06)
[2023-12-02 21:26] VITALS: BP 111/57; PULSE 86; RESP 16; TEMP 36.8; O2SAT 99
[2023-12-03] MEDS: DEXTROSE 5%/0.9% SOD CHL 1,000 ML 100 ML IV CONT ×2 (02:18→13:08)
[2023-12-03 05:43] VITALS: BP 132/65; PULSE 85; RESP 16; TEMP 36.5; O2SAT 96
[2023-12-03 06:04] LABS: Basophils Percent Auto 0.3 % (0.2-1.2); Eosinophils Absolute Auto 0.3 K/mm3 (0-0.3); Eosinophils Percent Auto 2.8 % (0-4.4); Hemoglobin 11.2 g/dL (12.0-15.0); Immature Granulocyte Absolute 0.06 K/mm3 (0.00-0.031); Immature Granulocyte Percent A 0.6 % (0-0.5); Lymphocytes Absolute Auto 1.41 K/mm3 (0.9-3.2); Lymphocytes Percent Auto 14.9 % (18.3-44.2); Mean Corpuscular HGB Conc 33.9 g/dl (32-36); Mean Corpuscular Hemoglobin 30.8 pg (26-34); Mean Corpuscular Volume 90.7 fl (80-100); Mean Platelet Volume 8.8 fl (7.4-10.4); Monocytes Absolute Auto 0.8 K/mm3 (0.1-0.6); Monocytes Percent Auto 8.3 % (2.6-8.5); Neutrophils Absolute Auto 6.9 K/mm3 (1.3-6.7); Neutrophils Percent Auto 73.1 % (45.5-73.1); Platelet Count Result 223 k/mm3 (150-375); Red Blood Count 3.64 M/mm3 (4.2-5.4); Red Cell Distribution Width 13.9 % (11.5-14.5); White Blood Count 9.4 K/mm3 (4.5-10.0)
[2023-12-03] MEDS: CENTRAL LINE FLUSH 10 ML IV PUSH ×3 (06:12→22:00)
[2023-12-03] MEDS: CEFEPIME 2 GM/NS 50 ML 2 GM/50 ML BAG IVPB ×3 (06:12→20:39)
[2023-12-03 06:37] LABS: Alanine Aminotransferase 33 U/L (6-35); Albumin Level 2.7 g/dL (3.5-5.1); Alkaline Phosphatase 101 U/L (38-126); Anion Gap 5 mmol/L (4-12); Aspartate Amino Transferase 37 U/L (14-36); Bilirubin,Total 0.5 mg/dL (0.2-1.3); Blood Urea Nitrogen 7 mg/dL (7-17); Calcium 7.6 mg/dL (8.4-10.2); Carbon Dioxide 27 mmol/L (22-30); Chloride 98 mmol/L (98-107); Estimated CRCL calculation 74 ml/min; Estimated Glomerular Filt Rate > 60; Glucose 123 mg/dL (65-110); Potassium 2.8 mmol/L (3.4-5.0); Sodium 130 mmol/L (137-145)
[2023-12-03] MEDS: POTASSIUM CHLORIDE 20 MEQ ER TABLET 40 MEQ PO ×2 (06:54→09:09)
[2023-12-03 06:56] LABS: Magnesium 2.1 mg/dL (1.6-2.3)
[2023-12-03] MEDS: AMITRIPTYLINE HCL 25 MG TABLET 50 MG PO (08:58)
[2023-12-03] MEDS: lamoTRIgine 100 MG TABLET PO ×2 (08:58→20:40)
[2023-12-03] MEDS: lisinopriL 20 MG TABLET PO (08:58)
[2023-12-03] MEDS: lamoTRIgine 50 MG TABLET PO ×2 (08:58→20:40)
[2023-12-03] MEDS: ENOXAPARIN 40 MG/0.4 ML SYRINGE SUB-Q (08:58)
[2023-12-03] MEDS: hydroCHLOROthiazide 12.5 MG CAPSULE PO (08:58)
[2023-12-03] MEDS: RALOXIFENE HCL (*CHEMO) 60 MG TABLET PO (08:58)
[2023-12-03] MEDS: VANCOMYCIN 1,500 MG/NS 500 ML 1,500 MG/500 ML BAG 250 MG IVPB ×2 (08:59→21:24)
[2023-12-03] MEDS: oxyCODONE/ACETAMINOPHEN (*CRX) 5-325 MG TABLET 1 TABLET PO ×2 (10:30→20:40)
[2023-12-03 14:00] VITALS: BP 115/61; PULSE 87; RESP 16; TEMP 36.4; O2SAT 97
--- NOTE | 2023-12-03 14:40 | P.PNIM_ITS ---
Progress Note: A&P Assessment and Plan (1) Sepsis: Code(s): A41.9 - Sepsis, unspecified organism Status: Acute Assessment and Plan: 12/01/23: * Patient originally meeting sepsis criteria with a temp 100.7?, pulse 103, respiratory rate 20, initial white blood cell count 13.0, multiple sources infection including cellulitis, acute appendicitis, urinary tract infection * Blood and urine cultures were obtained and are pending * Currently on cefepime, Flagyl, vancomycin, clindamycin * Tick-borne illness panel pending * Initial lactate 1.3 * CRP 7.7 12/02/23: * Blood cultures showing no growth today preliminary read * Culture showing E coli preliminary read * WBC today down to 10.6 * Serology is still pending on the tick-borne illness panel 12/03/2023: * WBC down trending * No fever overnight * Large blister to RT calf draining * tick panel pending patient did take doxycycline before admission (2) Cellulitis: Qualifiers: Laterality: right Site of cellulitis: extremity Site of cellulitis of extremity: lower extremity Qualified Code(s): L03.115 - Cellulitis of right lower limb Code(s): L03.90 - Cellulitis, unspecified Status: Acute Assessment and Plan: 12/01/23: * Extensive cellulitis from the groin to the ankle of her right leg with eryth dawn, warmth, tenderness, swelling that is becoming circumferential * Continue IV antibiotics * General surgery following 12/02/23: * White blood cell count today down to 10.6, C reactive protein 24.4 * Right leg cellulitis appears to be improving however there are notable blisters to the back of her right calf which is likely due to friction * Place PICC line due to poor access * Continue IV antibiotics for now, consider transitioning to oral tomorrow * General surgery following (3) Appendicitis: Qualifiers: Appendicitis type: unspecified Qualified Code(s): K37 - Unspecified appendicitis Code(s): K37 - Unspecified appendicitis Status: Acute Assessment and Plan: 12/01/23: * CT of the abdomen pelvis showed acute appendicitis * Treating conservatively with IV antibiotics * No surgical intervention needed at this time, general surgery following 12/02/23: * General surgery following * Continue IV antibiotic (4) Acute UTI: Code(s): N39.0 - Urinary tract infection, site not specified Status: Acute Assessment and Plan: 12/01/23: * UA showed 1+ urine protein, 2+ urine ketones, 2+ urine blood, positive nitrate, 3+ leukocytes, greater than 100 urine WBC, 4+ bacteria. * Urine culture pending * Continue IV antibiotics 12/02/23: * Urine culture showing E coli preliminary read * Continue IV antibiotics Plan Code status: Full code per patient DVT prophylaxis: Lovenox Stress ulcer prophylaxis: Protonix 40 daily PT/OT notes: Ambulatory Disposition: Patient continues admission for right lower extremity cellulitis continue with IV antibiotics at this time patient is ambulatory on own plan will be for discharge to home medically stable. Time Spent With Patient Time with patient: 15 - 25 minutes Subjective Date/time seen: 12/03/23 14:40 Interval history: Interval history: This is a 68-year-old female who presented to the hospital on 11/30/2023 with right leg swelling, pain and abdomen pain. Workup in the hospital included a lower extremity CT which shown a dilated appendix in the right lower quadrant raising suspicion for acute appendicitis, no evidence of signific
--- NOTE | 2023-12-03 14:40 | PM.IMPN ---
Progress Note: A&P Assessment and Plan (1) Sepsis: Code(s): A41.9 - Sepsis, unspecified organism Status: Acute Assessment and Plan: 12/01/23: Patient originally meeting sepsis criteria with a temp 100.7?, pulse 103, respiratory rate 20, initial white blood cell count 13.0, multiple sources infection including cellulitis, acute appendicitis, urinary tract infection Blood and urine cultures were obtained and are pending Currently on cefepime, Flagyl, vancomycin, clindamycin Tick-borne illness panel pending Initial lactate 1.3 CRP 7.7 12/02/23: Blood cultures showing no growth today preliminary read Culture showing E coli preliminary read WBC today down to 10.6 Serology is still pending on the tick-borne illness panel 12/03/2023: WBC down trending No fever overnight Large blister to RT calf draining tick panel pending patient did take doxycycline before admission (2) Cellulitis: Qualifiers: Laterality: right Site of cellulitis: extremity Site of cellulitis of extremity: lower extremity Qualified Code(s): L03.115 - Cellulitis of right lower limb Code(s): L03.90 - Cellulitis, unspecified Status: Acute Assessment and Plan: 12/01/23: Extensive cellulitis from the groin to the ankle of her right leg with erythema, warmth, tenderness, swelling that is becoming circumferential Continue IV antibiotics General surgery following 12/02/23: White blood cell count today down to 10.6, C reactive protein 24.4 Right leg cellulitis appears to be improving however there are notable blisters to the back of her right calf which is likely due to friction Place PICC line due to poor access Continue IV antibiotics for now, consider transitioning to oral tomorrow General surgery following (3) Appendicitis: Qualifiers: Appendicitis type: unspecified Qualified Code(s): K37 - Unspecified appendicitis Code(s): K37 - Unspecified appendicitis Status: Acute Assessment and Plan: 12/01/23: CT of the abdomen pelvis showed acute appendicitis Treating conservatively with IV antibiotics No surgical intervention needed at this time, general surgery following 12/02/23: General surgery following Continue IV antibiotic (4) Acute UTI: Code(s): N39.0 - Urinary tract infection, site not specified Status: Acute Assessment and Plan: 12/01/23: UA showed 1+ urine protein, 2+ urine ketones, 2+ urine blood, positive nitrate, 3+ leukocytes, greater than 100 urine WBC, 4+ bacteria. Urine culture pending Continue IV antibiotics 12/02/23: Urine culture showing E coli preliminary read Continue IV antibiotics Plan Code status: Full code per patient DVT prophylaxis: Lovenox Stress ulcer prophylaxis: Protonix 40 daily PT/OT notes: Ambulatory Disposition: Patient continues admission for right lower extremity cellulitis continue with IV antibiotics at this time patient is ambulatory on own plan will be for discharge to home medically stable. Time Spent With Patient Time with patient: 15 - 25 minutes Subjective Date/time seen: 12/03/23 14:40 Interval history: Interval history: This is a 68-year-old female who presented to the hospital on 11/30/2023 with right leg swelling, pain and abdomen pain. Workup in the hospital included a lower extremity CT which shown a dilated appendix in the right lower quadrant raising suspicion for acute appendicitis, no evidence of significant arterial stenosis/occlusion or DVT in the right lower extremity, mild prominent right inguinal lymph nodes with subcutaneous gas stranding in the region, additional nonspecific soft tissue edema in the popliteal fossa and to a lesser extent throughout the calf. Abdomen pelvis CT shown findings for early acute appendicitis. Venous Doppler was negative for DVT. Initial labs showed a white blood cell count of 13.0, hemoglobin 15.3, D-dimer 3.5, sodium 134, AST 64, AL
[2023-12-03] MEDS: ACIDOPHILUS/BULGARICUS CHEWABLE TABLET 1 TABLET PO ×2 (16:59→20:40)
[2023-12-03] MEDS: BENZOCAINE/MENTHOL (*BKC) 18 EA LOZENGE 1 LOZENGE PO (20:39)
[2023-12-03 21:44] VITALS: BP 125/57; PULSE 95; RESP 18; TEMP 38.1; O2SAT 99
[2023-12-04 05:42] VITALS: BP 133/79; PULSE 85; RESP 16; TEMP 36.5; O2SAT 98
[2023-12-04] MEDS: CEFEPIME 2 GM/NS 50 ML 2 GM/50 ML BAG IVPB ×3 (06:08→20:55)
[2023-12-04] MEDS: CENTRAL LINE FLUSH 10 ML IV PUSH ×3 (06:08→21:00)
[2023-12-04] MEDS: BENZOCAINE/MENTHOL (*BKC) 18 EA LOZENGE 1 LOZENGE PO (06:11)
[2023-12-04 06:39] LABS: Basophils Absolute Auto 0.1 K/mm3 (0.0-0.1); Basophils Percent Auto 0.5 % (0.2-1.2); Eosinophils Absolute Auto 0.4 K/mm3 (0-0.3); Eosinophils Percent Auto 3.6 % (0-4.4); Hematocrit 35.5 % (37.0-47.0); Hemoglobin 12.4 g/dL (12.0-15.0); Immature Granulocyte Absolute 0.09 K/mm3 (0.00-0.031); Immature Granulocyte Percent A 0.8 % (0-0.5); Lymphocytes Percent Auto 15.1 % (18.3-44.2); Mean Corpuscular HGB Conc 34.9 g/dl (32-36); Mean Corpuscular Hemoglobin 31.7 pg (26-34); Mean Corpuscular Volume 90.8 fl (80-100); Mean Platelet Volume 8.6 fl (7.4-10.4); Monocytes Absolute Auto 0.9 K/mm3 (0.1-0.6); Monocytes Percent Auto 7.9 % (2.6-8.5); Neutrophils Absolute Auto 8.1 K/mm3 (1.3-6.7); Neutrophils Percent Auto 72.1 % (45.5-73.1); Platelet Count Result 289 k/mm3 (150-375); Red Blood Count 3.91 M/mm3 (4.2-5.4); White Blood Count 11.3 K/mm3 (4.5-10.0)
[2023-12-04 06:52] LABS: Alanine Aminotransferase 37 U/L (6-35); Alkaline Phosphatase 106 U/L (38-126); Anion Gap 3 mmol/L (4-12); Aspartate Amino Transferase 42 U/L (14-36); Bilirubin,Total 0.5 mg/dL (0.2-1.3); Blood Urea Nitrogen 5 mg/dL (7-17); Calcium 8.1 mg/dL (8.4-10.2); Carbon Dioxide 29 mmol/L (22-30); Chloride 101 mmol/L (98-107); Estimated CRCL calculation 74 ml/min; Estimated Glomerular Filt Rate > 60; Glucose 102 mg/dL (65-110); Potassium 3.8 mmol/L (3.4-5.0); Sodium 133 mmol/L (137-145)
[2023-12-04 06:53] LABS: Add Urine Microscopic? YES; Appearance Urine Cloudy (Clear); Bacteria Urine None Seen /hpf; Bilirubin Urine Negative (Negative); Blood Urine Negative (Negative); Color Urine Yellow (Yellow); Glucose Urine UA Negative (Negative); Ketones Urine Negative (Negative); Leukocyte Esterase Ur Negative LEU/UL (Negative); Nitrate Urine Negative (Negative); Non Pathogenic Casts 0-2; Protein Urine Negative (Negative); RBC Urine 0-2 /hpf (0-2); Specific Grav Ur 1.009 (1.001-1.035); Squamous Epithelial Cell Urine Few /hpf (Few); Urobilinogen Urine 0.2 mg/dL (<2.0); WBC Urine 0-5 /hpf (0-3)
[2023-12-04 06:58] LABS: Vancomycin Trough 15.8 ug/mL (10.0-20.0)
[2023-12-04] MEDS: ACIDOPHILUS/BULGARICUS CHEWABLE TABLET 1 TABLET PO ×4 (09:09→20:56)
[2023-12-04] MEDS: RALOXIFENE HCL (*CHEMO) 60 MG TABLET PO (09:10)
[2023-12-04] MEDS: AMITRIPTYLINE HCL 25 MG TABLET 50 MG PO (09:10)
[2023-12-04] MEDS: lisinopriL 20 MG TABLET PO (09:10)
[2023-12-04] MEDS: ENOXAPARIN 40 MG/0.4 ML SYRINGE SUB-Q (09:10)
[2023-12-04] MEDS: hydroCHLOROthiazide 12.5 MG CAPSULE PO (09:10)
[2023-12-04] MEDS: VANCOMYCIN 1,500 MG/NS 500 ML 1,500 MG/500 ML BAG 250 MG IVPB (09:11)
[2023-12-04] MEDS: oxyCODONE/ACETAMINOPHEN (*CRX) 5-325 MG TABLET 1 TABLET PO ×2 (09:12→20:57)
[2023-12-04] MEDS: lamoTRIgine 100 MG TABLET PO ×2 (09:22→20:56)
[2023-12-04] MEDS: lamoTRIgine 50 MG TABLET PO ×2 (09:22→20:56)
--- NOTE | 2023-12-04 10:52 | P.PNIM_ITS ---
Progress Note: A&P Assessment and Plan (1) Sepsis: Code(s): A41.9 - Sepsis, unspecified organism Status: Acute Assessment and Plan: 12/01/23: * Patient originally meeting sepsis criteria with a temp 100.7?, pulse 103, respiratory rate 20, initial white blood cell count 13.0, multiple sources infection including cellulitis, acute appendicitis, urinary tract infection * Blood and urine cultures were obtained and are pending * Currently on cefepime, Flagyl, vancomycin, clindamycin * Tick-borne illness panel pending * Initial lactate 1.3 * CRP 7.7 12/02/23: * Blood cultures showing no growth today preliminary read * Culture showing E coli preliminary read * WBC today down to 10.6 * Serology is still pending on the tick-borne illness panel 12/03/2023: * WBC down trending * No fever overnight * Large blister to RT calf draining * tick panel pending patient did take doxycycline before admission 12/04/2023: * Febrile overnight * WBC with small bump * added p.o. doxycycline to cover for tick-borne needing panel (2) Cellulitis: Qualifiers: Laterality: right Site of cellulitis: extremity Site of cellulitis of extremity: lower extremity Qualified Code(s): L03.115 - Cellulitis of right lower limb Code(s): L03.90 - Cellulitis, unspecified Status: Acute Assessment and Plan: 12/01/23: * Extensive cellulitis from the groin to the ankle of her right leg with erythema, warmth, tenderness, swelling that is becoming circumferential * Continue IV antibiotics * General surgery following 12/02/23: * White blood cell count today down to 10.6, C reactive protein 24.4 * Right leg cellulitis appears to be improving however there are notable blisters to the back of her right calf which is likely due to friction * Place PICC line due to poor access * Continue IV antibiotics for now, consider transitioning to oral tomorrow * General surgery following 12/04/2023: * Febrile overnight * WBC with small bump * added p.o. doxycycline to cover for tick-borne needing panel * Probiotic added (3) Appendicitis: Qualifiers: Appendicitis type: unspecified Qualified Code(s): K37 - Unspecified appendicitis Code(s): K37 - Unspecified appendicitis Status: Acute Assessment and Plan: 12/01/23: * CT of the abdomen pelvis showed acute appendicitis * Treating conservatively with IV antibiotics * No surgical intervention needed at this time, general surgery following 12/02/23: * General surgery following * Continue IV antibiotic 12/04/2023 * No reports of ABD pain (4) Acute UTI: Code(s): N39.0 - Urinary tract infection, site not specified Status: Acute Assessment and Plan: 12/01/23: * UA showed 1+ urine protein, 2+ urine ketones, 2+ urine blood, positive nitrate, 3+ leukocytes, greater than 100 urine WBC, 4+ bacteria. * Urine culture pending * Continue IV antibiotics 12/02/23: * Urine culture showing E coli preliminary read * Continue IV antibiotics Plan Code status: Full code per patient DVT prophylaxis: Lovenox Stress ulcer prophylaxis: Protonix 40 daily PT/OT notes: Ambulatory Disposition: Patient continues admission for right lower extremity cellulitis continue with IV antibiotics at this time added doxycycline PO pending tick borne panel patient is ambulatory on own plan will be for discharge to home medically stable. Time Spent With Patient Time with patient: 15 - 25 minutes Subjective Date/time seen:
--- NOTE | 2023-12-04 10:52 | PM.IMPN ---
Progress Note: A&P Assessment and Plan (1) Sepsis: Code(s): A41.9 - Sepsis, unspecified organism Status: Acute Assessment and Plan: 12/01/23: Patient originally meeting sepsis criteria with a temp 100.7?, pulse 103, respiratory rate 20, initial white blood cell count 13.0, multiple sources infection including cellulitis, acute appendicitis, urinary tract infection Blood and urine cultures were obtained and are pending Currently on cefepime, Flagyl, vancomycin, clindamycin Tick-borne illness panel pending Initial lactate 1.3 CRP 7.7 12/02/23: Blood cultures showing no growth today preliminary read Culture showing E coli preliminary read WBC today down to 10.6 Serology is still pending on the tick-borne illness panel 12/03/2023: WBC down trending No fever overnight Large blister to RT calf draining tick panel pending patient did take doxycycline before admission 12/04/2023: Febrile overnight WBC with small bump added p.o. doxycycline to cover for tick-borne needing panel (2) Cellulitis: Qualifiers: Laterality: right Site of cellulitis: extremity Site of cellulitis of extremity: lower extremity Qualified Code(s): L03.115 - Cellulitis of right lower limb Code(s): L03.90 - Cellulitis, unspecified Status: Acute Assessment and Plan: 12/01/23: Extensive cellulitis from the groin to the ankle of her right leg with erythema, warmth, tenderness, swelling that is becoming circumferential Continue IV antibiotics General surgery following 12/02/23: White blood cell count today down to 10.6, C reactive protein 24.4 Right leg cellulitis appears to be improving however there are notable blisters to the back of her right calf which is likely due to friction Place PICC line due to poor access Continue IV antibiotics for now, consider transitioning to oral tomorrow General surgery following 12/04/2023: Febrile overnight WBC with small bump added p.o. doxycycline to cover for tick-borne needing panel Probiotic added (3) Appendicitis: Qualifiers: Appendicitis type: unspecified Qualified Code(s): K37 - Unspecified appendicitis Code(s): K37 - Unspecified appendicitis Status: Acute Assessment and Plan: 12/01/23: CT of the abdomen pelvis showed acute appendicitis Treating conservatively with IV antibiotics No surgical intervention needed at this time, general surgery following 12/02/23: General surgery following Continue IV antibiotic 12/04/2023 No reports of ABD pain (4) Acute UTI: Code(s): N39.0 - Urinary tract infection, site not specified Status: Acute Assessment and Plan: 12/01/23: UA showed 1+ urine protein, 2+ urine ketones, 2+ urine blood, positive nitrate, 3+ leukocytes, greater than 100 urine WBC, 4+ bacteria. Urine culture pending Continue IV antibiotics 12/02/23: Urine culture showing E coli preliminary read Continue IV antibiotics Plan Code status: Full code per patient DVT prophylaxis: Lovenox Stress ulcer prophylaxis: Protonix 40 daily PT/OT notes: Ambulatory Disposition: Patient continues admission for right lower extremity cellulitis continue with IV antibiotics at this time added doxycycline PO pending tick borne panel patient is ambulatory on own plan will be for discharge to home medically stable. Time Spent With Patient Time with patient: 15 - 25 minutes Subjective Date/time seen: 12/04/23 10:52 Interval history: Interval history: This is a 68-year-old female who presented to the hospital on 11/30/2023 with right leg swelling, pain and abdomen pain. Workup in the hospital included a lower extremity CT which shown a dilated appendix in the right lower quadrant raising suspicion for acute appendicitis, no evidence of significant arterial stenosis/occlusion or DVT in the right lower extremity, mild prominent right inguinal lymph nodes with subcutaneous gas stranding in t
[2023-12-04] MEDS: DOXYCYCLINE HYCLATE 100 MG TABLET PO ×2 (11:08→20:56)
[2023-12-04 14:00] VITALS: BP 132/72; PULSE 83; RESP 16; TEMP 36.3; O2SAT 99
[2023-12-04] MEDS: ALTEPLASE 2 MG VIAL (CATHFLO) IV PUSH (18:22)
[2023-12-04] MEDS: VANCOMYCIN 1,250 MG/NS 250 ML 1,250 MG/250 ML BAG 166.67 MG IVPB (20:55)
[2023-12-04 21:44] VITALS: BP 140/73; PULSE 89; RESP 18; TEMP 37.8; O2SAT 97
[2023-12-04 22:58] LABS: Babesia microti AB IgG <1:64 titer; Babesia microti AB IgM <1:20 titer
[2023-12-05 05:29] VITALS: BP 122/68; PULSE 80; RESP 16; TEMP 37.2; O2SAT 98
[2023-12-05] MEDS: CEFEPIME 2 GM/NS 50 ML 2 GM/50 ML BAG IVPB ×3 (05:38→21:07)
[2023-12-05] MEDS: CENTRAL LINE FLUSH 10 ML IV PUSH ×3 (05:39→21:09)
[2023-12-05 06:30] LABS: Basophils Absolute Auto 0.1 K/mm3 (0.0-0.1); Basophils Percent Auto 0.5 % (0.2-1.2); Eosinophils Absolute Auto 0.5 K/mm3 (0-0.3); Hematocrit 33.4 % (37.0-47.0); Hemoglobin 11.3 g/dL (12.0-15.0); Immature Granulocyte Absolute 0.14 K/mm3 (0.00-0.031); Immature Granulocyte Percent A 1.4 % (0-0.5); Lymphocytes Absolute Auto 1.71 K/mm3 (0.9-3.2); Lymphocytes Percent Auto 16.9 % (18.3-44.2); Mean Corpuscular HGB Conc 33.8 g/dl (32-36); Mean Corpuscular Hemoglobin 30.9 pg (26-34); Mean Corpuscular Volume 91.3 fl (80-100); Mean Platelet Volume 8.6 fl (7.4-10.4); Monocytes Absolute Auto 0.8 K/mm3 (0.1-0.6); Monocytes Percent Auto 8.2 % (2.6-8.5); Neutrophils Absolute Auto 6.9 K/mm3 (1.3-6.7); Platelet Count Result 348 k/mm3 (150-375); Red Blood Count 3.66 M/mm3 (4.2-5.4); White Blood Count 10.1 K/mm3 (4.5-10.0)
[2023-12-05 06:39] LABS: Anion Gap 5 mmol/L (4-12); Bilirubin,Total 0.4 mg/dL (0.2-1.3); Blood Urea Nitrogen 7 mg/dL (7-17); Carbon Dioxide 29 mmol/L (22-30); Chloride 99 mmol/L (98-107); Estimated CRCL calculation 74 ml/min; Estimated Glomerular Filt Rate > 60; Glucose 93 mg/dL (65-110); Potassium 3.8 mmol/L (3.4-5.0); Sodium 133 mmol/L (137-145)
[2023-12-05 06:40] LABS: Alanine Aminotransferase 40 U/L (6-35); Albumin Level 2.7 g/dL (3.5-5.1); Alkaline Phosphatase 88 U/L (38-126); Aspartate Amino Transferase 62 U/L (14-36)
[2023-12-05] MEDS: RALOXIFENE HCL (*CHEMO) 60 MG TABLET PO (09:06)
[2023-12-05] MEDS: DOXYCYCLINE HYCLATE 100 MG TABLET PO ×2 (09:06→21:07)
[2023-12-05] MEDS: ACIDOPHILUS/BULGARICUS CHEWABLE TABLET 1 TABLET PO ×4 (09:06→21:07)
[2023-12-05] MEDS: hydroCHLOROthiazide 12.5 MG CAPSULE PO (09:06)
[2023-12-05] MEDS: lamoTRIgine 100 MG TABLET PO ×2 (09:07→21:07)
[2023-12-05] MEDS: lisinopriL 20 MG TABLET PO (09:07)
[2023-12-05] MEDS: lamoTRIgine 50 MG TABLET PO ×2 (09:07→21:07)
[2023-12-05] MEDS: ENOXAPARIN 40 MG/0.4 ML SYRINGE SUB-Q (09:07)
[2023-12-05] MEDS: AMITRIPTYLINE HCL 25 MG TABLET 50 MG PO (09:07)
--- NOTE | 2023-12-05 12:46 | PC.NURSE ---
Patient is very concerned about her leg and states that she has only seen [employer]PUT[employer]IC's or PA's and has not been evaluated by the surgeon. States she would like to be seen by a physician. RN advised that surgery would be called today to re-evaluate the patient and discuss further treatment if needed. Labs were reviewed with the patient as well. This RN called and left a message for Dr. Treviño and W[facility] Juarez.
--- NOTE | 2023-12-05 14:08 | PM.PNGS ---
Progress Note: A&P Assessment and Plan (1) Cellulitis: Qualifiers: Laterality: right Site of cellulitis: extremity Site of cellulitis of extremity: lower extremity Qualified Code(s): L03.115 - Cellulitis of right lower limb Code(s): L03.90 - Cellulitis, unspecified Status: Acute Assessment and Plan: We were called to re-evaluate the RLE cellulitis. Overall, there are signs of improvement of the cellulitis. She now has blistering of the right posterior calf and still significant pain and tenderness in this location. No obvious abscess on exam. WBC 11,000 yesterday and 10,000 today, but she did have a low-grade fever last night. Will repeat a CT scan of the right lower extremity to re-evaluate for a deeper abscess. If there is no abscess on CT, then there is no indication for any surgical intervention and we would recommend to continue medical management. (2) Abnormal CT of the abdomen: Code(s): R93.5 - Abnormal findings on diagnostic imaging of other abdominal regions, including retroperitoneum Status: Acute Assessment and Plan: Appendix dilated on CT scan with no inflammation. She is unchanged since seen last week, no abdominal pain or tenderness. No need for surgical management. Plan I have discussed the patient's case and plan of care with Dr. Treviño. Subjective Subjective Date/Time Seen: 12/05/23 14:08 Patient reports: no new complaints, tolerating a regular diet and fever (Tmax 100.1 around 2100 last night) Interval history: We were called to re-evaluate the patient's right lower extremity cellulitis without improvement. She denies any abdominal pain or tenderness through the weekend. She reports continued pain in the right lower leg and calf that has not improved since being admitted since last week. Redness in the upper leg has improved, but now she has nearly continuous drainage from the right lower leg posteriorly and is going through 1-2 pads on the bed every couple hours. Denies any numbness or tingling in her right lower leg or foot. WBC has been trending down and normalized two days ago, it popped up again to 11k yesterday and down to 10k today. Exam Const: General: comfortable and no acute distress Orientation/consciousness: patient oriented x3 Extrem: Other: Right medial thigh cellulitis nearly resolved, no significant residual erythema, much improved since my last exam last week. The darker red discoloration in the lower leg is still circumferential and about the same. There is new development of blistering on the posterior and medial calf. There are three small blisters that appear fluid-filled and then a larger fluid-filled blister in the central posterior calf that is weeping serous fluid and has some darker, almost purple discoloration of the skin around the larger blister. No purulent drainage. There is induration and tightness of the calf but unable to feel any obvious fluctuant areas on exam. Entire posterior lower leg is very tender to touch on exam. She is still able to wiggle her toes and move her ankle with fairly normal ROM without pain. Objective Data Vital Signs Vital Signs: Vital Signs - 24 hr 12/04/23 21:44 12/05/23 05:29 Temperature 100.1 F H 99.0 F Pulse Rate 89 80 Respiratory Rate 18 16 Blood Pressure 140/73 122/68 Pulse Oximetry 97 98 Intake/Output Intake/Output: Intake & Output 12/02/23 12/03/23 12/04/23 12/05/23 23:59 23:59 23:59 23:59 Intake Total 3000 4722 3510 840 Balance 3000 4722 3510 840 Meds/Results Medications: Active Medications Generic Name Dose Route Start Last Admin Trade Name Freq PRN Reason Stop Dose Admin Alteplase, Recombinant 2 mg 12/03/23 20:07 12/04/23 18:22 Alteplase 2 Mg Vial (Cathflo) IV PUSH 2 mg ONCE PRN Administration Line Occlusion Amitriptyline HCl 50 mg 12/01/23 09:00 12/05/23 09:07 Amitriptyline Hcl 25 Mg Tablet PO 50 mg DAILY ALFREDO Administration Benzocaine
[2023-12-05] MEDS: oxyCODONE/ACETAMINOPHEN (*CRX) 5-325 MG TABLET 1 TABLET PO ×2 (18:01→22:06)
--- NOTE | 2023-12-05 18:45 | PM.IMPN ---
Progress Note: A&P Assessment and Plan (1) Sepsis: Code(s): A41.9 - Sepsis, unspecified organism Status: Acute Assessment and Plan: Patient originally meeting sepsis criteria with a temp 100.7?, pulse 103, respiratory rate 20, initial white blood cell count 13.0, multiple sources infection including cellulitis, acute appendicitis, urinary tract infection. UCx growing EColi that is clement sensitive. BCx NGTD Was on Cefepime, Flagyl, clinda and Vancomycin Tick-borne illness panel ordered and Doxy added. Abx narrowed to Cefepime and Doxy. WBC almost normal but still having low grade fever yesterday. Monitor for now but resume Vanco if WBC climbs or more fevers. Would care and GenSurg following. (2) Cellulitis: Qualifiers: Laterality: right Site of cellulitis: extremity Site of cellulitis of extremity: lower extremity Qualified Code(s): L03.115 - Cellulitis of right lower limb Code(s): L03.90 - Cellulitis, unspecified Status: Acute Assessment and Plan: Extensive cellulitis from the groin to the ankle of her right leg with erythema, warmth, tenderness, swelling that is becoming circumferential Repeat CT showing no absces. (3) Appendicitis: Qualifiers: Appendicitis type: unspecified Qualified Code(s): K37 - Unspecified appendicitis Code(s): K37 - Unspecified appendicitis Status: Acute Assessment and Plan: CT of the abdomen pelvis showed acute appendicitis. Treating conservatively with IV antibiotics No surgical intervention needed at this time, general surgery following Follow (4) Acute UTI: Code(s): N39.0 - Urinary tract infection, site not specified Status: Acute Assessment and Plan: UA is consistent with UTI. UCx collected. Abx started. UCx pansenistive EColi Plan Code status: Full code DVT prophylaxis: Lovenox Subjective Date/time seen: 12/05/23 18:45 Interval history: 68yo female with HTN, breast CA and hx of ruptures brain aneurysm here for right leg edema and erythema. Assuming care. Chart reviewed. Patient is up walking on right leg with only minimal pain. No chest pain or shortness of breath. No nausea, vomiting or diarrhea. Exam Narrative: Tm 100.1 99.0 122/68 60 16 98% ra Gen - NARD Chest - bibasilar crackles, nml RR CV - RRR S1/S2 Abd - Soft, NT/ND, Positive BS Ext - RLE edema and beefy red erytehma with large bullae posterior and medial calf. Erythema is receding from marked lines. warm to touch Psych - Nml mood and affect Skin - Warm and dry Objective Data Vital Signs Vital Signs: Vital Signs - 24 hr 12/04/23 21:44 12/05/23 05:29 12/05/23 08:00 Temperature 100.1 F H 99.0 F Pulse Rate 89 80 Respiratory Rate 18 16 Blood Pressure 140/73 122/68 Pulse Oximetry 97 98 Oxygen Delivery Room Air Intake/Output Intake/Output: Intake & Output 12/02/23 12/03/23 12/04/23 12/05/23 23:59 23:59 23:59 23:59 Intake Total 3000 4722 3510 1440 Balance 3000 4722 3510 1440 Meds/Results Medications: Active Medications Generic Name Dose Route Start Last Admin Trade Name Freq PRN Reason Stop Dose Admin Alteplase, Recombinant 2 mg 12/03/23 20:07 12/04/23 18:22 Alteplase 2 Mg Vial (Cathflo) IV PUSH 2 mg ONCE PRN Administration Line Occlusion Amitriptyline HCl 50 mg 12/01/23 09:00 12/05/23 09:07 Amitriptyline Hcl 25 Mg Tablet PO 50 mg DAILY ALFREDO Administration Benzocaine 1 lozenge 12/03/23 18:56 12/04/23 06:11 Benzocaine/Menthol (*Bkc) 18 Ea Lozenge PO 1 lozenge PRN PRN Administration Sore Throat Doxycycline Hyclate 100 mg 12/04/23 10:55 12/05/23 09:06 Doxycycline Hyclate 100 Mg Tablet PO 100 mg Q12HR ALFREDO Administration Enoxaparin Sodium 40 mg 12/02/23 09:00 12/05/23 09:07 Enoxaparin 40 Mg/0.4 Ml Syringe SUB-Q 40 mg DAILY ALFREDO Administration Hydrochlorothiazide 12.5 mg 11/30/23
[2023-12-05 20:35] VITALS: BP 125/73; PULSE 81; RESP 16; TEMP 36.3; O2SAT 97
[2023-12-05 23:04] LABS: Babesia duncani (WA1) AB IgG <1:256
[2023-12-06 05:06] VITALS: BP 122/71; PULSE 83; RESP 17; TEMP 36.1; O2SAT 95
[2023-12-06] MEDS: CEFEPIME 2 GM/NS 50 ML 2 GM/50 ML BAG IVPB (05:16)
[2023-12-06] MEDS: CENTRAL LINE FLUSH 10 ML IV PUSH ×3 (05:19→21:55)
[2023-12-06 08:38] VITALS: BP 124/68; PULSE 83; O2SAT 95
[2023-12-06] MEDS: lisinopriL 20 MG TABLET PO (08:40)
[2023-12-06] MEDS: ACIDOPHILUS/BULGARICUS CHEWABLE TABLET 1 TABLET PO ×4 (08:40→20:19)
[2023-12-06] MEDS: DOXYCYCLINE HYCLATE 100 MG TABLET PO ×2 (08:40→20:19)
[2023-12-06] MEDS: hydroCHLOROthiazide 12.5 MG CAPSULE PO (08:40)
[2023-12-06] MEDS: lamoTRIgine 100 MG TABLET PO ×2 (08:40→20:19)
[2023-12-06] MEDS: lamoTRIgine 50 MG TABLET PO ×2 (08:41→20:19)
[2023-12-06] MEDS: ENOXAPARIN 40 MG/0.4 ML SYRINGE SUB-Q (08:41)
[2023-12-06] MEDS: RALOXIFENE HCL (*CHEMO) 60 MG TABLET PO (08:41)
[2023-12-06] MEDS: AMITRIPTYLINE HCL 25 MG TABLET 50 MG PO (09:23)
--- NOTE | 2023-12-06 12:14 | PM.PNGS ---
Progress Note: A&P Assessment and Plan (1) Cellulitis: Qualifiers: Laterality: right Site of cellulitis: extremity Site of cellulitis of extremity: lower extremity Qualified Code(s): L03.115 - Cellulitis of right lower limb Code(s): L03.90 - Cellulitis, unspecified Status: Acute Assessment and Plan: CT right lower extremity negative for deeper abscess. Continue antibiotics per primary service for cellulitis. Continue to keep the right leg elevated. No indication for surgical intervention at this time. Will initiate local wound care for the blisters and wrap the lower leg. (2) Abnormal CT of the abdomen: Code(s): R93.5 - Abnormal findings on diagnostic imaging of other abdominal regions, including retroperitoneum Status: Acute Assessment and Plan: Appendix dilated on CT scan with no inflammation. She is unchanged since seen last week, no abdominal pain or tenderness. No need for surgical management. Plan I have discussed the patient's case and plan of care with Dr. Treviño. Subjective Subjective Date/Time Seen: 12/06/23 12:14 Patient reports: no new complaints and afebrile Interval history: No acute events overnight. No new issues. Exam Extrem: Other: Overall cellulitis is improving with no erythema on the right upper leg. Still more localized darker erythema circumferentially around the lower leg with some purple discoloration of the posterior calf with multiple serous fluid filled blisters (3) and one larger (nearly 11 cm) gelatinous filled blister. Exam unchanged from yesterday. Objective Data Vital Signs Vital Signs: Vital Signs - 24 hr 12/05/23 20:35 12/05/23 21:10 12/06/23 05:06 Temperature 97.4 F L 97.0 F L Pulse Rate 81 83 Respiratory Rate 16 17 Blood Pressure 125/73 122/71 Pulse Oximetry 97 95 Oxygen Delivery Room Air 12/06/23 08:38 12/06/23 08:40 Temperature Pulse Rate 83 Respiratory Rate Blood Pressure 124/68 Pulse Oximetry 95 Oxygen Delivery Room Air Intake/Output Intake/Output: Intake & Output 12/03/23 12/04/23 12/05/23 12/06/23 23:59 23:59 23:59 23:59 Intake Total 4722 3510 1540 770 Balance 4722 3510 1540 770 Meds/Results Medications: Active Medications Generic Name Dose Route Start Last Admin Trade Name Freq PRN Reason Stop Dose Admin Alteplase, Recombinant 2 mg 12/03/23 20:07 12/04/23 18:22 Alteplase 2 Mg Vial (Cathflo) IV PUSH 2 mg ONCE PRN Administration Line Occlusion Amitriptyline HCl 50 mg 12/01/23 09:00 12/06/23 09:23 Amitriptyline Hcl 25 Mg Tablet PO 50 mg DAILY ALFREDO Administration Benzocaine 1 lozenge 12/03/23 18:56 12/04/23 06:11 Benzocaine/Menthol (*Bkc) 18 Ea Lozenge PO 1 lozenge PRN PRN Administration Sore Throat Doxycycline Hyclate 100 mg 12/04/23 10:55 12/06/23 08:40 Doxycycline Hyclate 100 Mg Tablet PO 100 mg Q12HR ALFREDO Administration Enoxaparin Sodium 40 mg 12/02/23 09:00 12/06/23 08:41 Enoxaparin 40 Mg/0.4 Ml Syringe SUB-Q 40 mg DAILY ALFREDO Administration Hydrochlorothiazide 12.5 mg 11/30/23 13:15 12/06/23 08:40 Hydrochlorothiazide 12.5 Mg Capsule PO 12.5 mg DAILY ALFREDO Administration Hydromorphone HCl 0.5 mg 11/30/23 16:07 Hydromorphone Hcl Inj (*Crx) 1 Mg/Ml Syr IV PUSH Q4HR PRN Pain Rated 7-10 Cefepime HCl 2 gm in 50 mls @ 100 mls/hr 12/01/23 15:00 12/06/23 05:53 Maxipime 2 Gm/Ns 50 Ml IVPB Infused Q8HR ALFREDO Infusion Lactobacillus Acidophilus 1 tablet 12/03/23 17:00 12/06/23 08:40 Acidophilus/Bulgaricus Chewable Tablet PO 1 tablet QID ALFREDO Administration Lamotrigine 100 mg 11/30/23 12:50 12/06/23 08:40 Lamotrigine 100 Mg Tablet PO 100 mg Q12HR ALFREDO Administration Lamotrigine 50 mg 11/30/23 12:50 12/06/23 08:41 Lamotrigine 50 Mg Tablet PO 50 mg Q12HR ALFREDO Administration Lisinopril 20 mg 11/30/23 09:00 12/06/23 08:40 Lisinopril 20 Mg Ta
--- NOTE | 2023-12-06 13:48 | PM.IMPN ---
Progress Note: A&P Assessment and Plan (1) Sepsis: Code(s): A41.9 - Sepsis, unspecified organism Status: Acute Assessment and Plan: Patient met sepsis criteria with fever, pulse 103, respiratory rate 20, WBC 13.0 from cellulitis, acute appendicitis, and UTI UCx growing EColi that is clement sensitive. BCx NGTD Was on Cefepime, Flagyl, clinda and Vancomycin Tick-borne illness panel ordered and Doxy added. Abx narrowed to Cefepime and Doxy. WBC close to normal but still having low grade fevers 8/4 Labs pending. Narrow abx. (2) Cellulitis: Qualifiers: Laterality: right Site of cellulitis: extremity Site of cellulitis of extremity: lower extremity Qualified Code(s): L03.115 - Cellulitis of right lower limb Code(s): L03.90 - Cellulitis, unspecified Status: Acute Assessment and Plan: Extensive cellulitis from the groin to the ankle of her right leg with erythema, warmth, tenderness, swelling that is becoming circumferential Repeat CT showing no absces. Wound care and GenSurg following. They may try to drain some of the bullae today and wrap (3) Appendicitis: Qualifiers: Appendicitis type: unspecified Qualified Code(s): K37 - Unspecified appendicitis Code(s): K37 - Unspecified appendicitis Status: Acute Assessment and Plan: CT of the abdomen pelvis showed acute appendicitis. Treating conservatively with IV antibiotics No surgical intervention needed at this time, general surgery following Follow (4) Acute UTI: Code(s): N39.0 - Urinary tract infection, site not specified Status: Acute Assessment and Plan: UA is consistent with UTI. UCx collected. Abx started. UCx pansensitive EColi and completed a course. Plan Code status: Full code DVT prophylaxis: Lovenox Subjective Date/time seen: 12/06/23 13:48 Interval history: 68yo female with HTN, breast CA and hx of ruptures brain aneurysm here for right leg edema and erythema. No CP or SOB. Slight cough. Exam Narrative: AF 97.0 124/68 83 17 95% ra Gen - NARD Chest - bibasilar crackles, nml RR CV - RRR S1/S2 Abd - Soft, NT/ND, Positive BS Ext - RLE edema and beefy red erythema with large bullae posterior and medial calf. Erythema is receding from marked lines. warm to touch Psych - Nml mood and affect Skin - Warm and dry Objective Data Vital Signs Vital Signs: Vital Signs - 24 hr 12/05/23 20:35 12/05/23 21:10 12/06/23 05:06 Temperature 97.4 F L 97.0 F L Pulse Rate 81 83 Respiratory Rate 16 17 Blood Pressure 125/73 122/71 Pulse Oximetry 97 95 Oxygen Delivery Room Air 12/06/23 08:38 12/06/23 08:40 Temperature Pulse Rate 83 Respiratory Rate Blood Pressure 124/68 Pulse Oximetry 95 Oxygen Delivery Room Air Intake/Output Intake/Output: Intake & Output 12/03/23 12/04/23 12/05/23 12/06/23 23:59 23:59 23:59 23:59 Intake Total 4722 3510 1540 770 Balance 4722 3510 1540 770 Meds/Results Medications: Active Medications Generic Name Dose Route Start Last Admin Trade Name Freq PRN Reason Stop Dose Admin Alteplase, Recombinant 2 mg 12/03/23 20:07 12/04/23 18:22 Alteplase 2 Mg Vial (Cathflo) IV PUSH 2 mg ONCE PRN Administration Line Occlusion Amitriptyline HCl 50 mg 12/01/23 09:00 12/06/23 09:23 Amitriptyline Hcl 25 Mg Tablet PO 50 mg DAILY [facility] Administration Benzocaine 1 lozenge 12/03/23 18:56 12/04/23 06:11 Benzocaine/Menthol (*Bkc) 18 Ea Lozenge PO 1 lozenge PRN PRN Administration Sore Throat Clotrimazole 1 applic 12/07/23 09:00 Betamethasone/Clotrimazole Cream 45 Gm Tube TOPICAL DAILY ALFREDO Doxycycline Hyclate 100 mg 12/04/23 10:55 12/06/23 08:40 Doxycycline Hyclate 100 Mg Tablet PO 100 mg Q12HR ALFREDO Administration Enoxaparin Sodium 40 mg 12/02/23 09:00 12/06/23 08:41 Enoxaparin 40 Mg/0.4 Ml Syringe SUB-Q 40
[2023-12-06 14:00] VITALS: BP 127/75; PULSE 85; RESP 18; TEMP 36.8; O2SAT 98
[2023-12-06] MEDS: HYDROmorphone HCL INJ (*CRX) 1 MG/ML SYR 0.5 MG IV PUSH (14:12)
[2023-12-06] MEDS: CEFDINIR 300 MG CAPSULE PO ×2 (15:02→20:19)
[2023-12-06] MEDS: oxyCODONE/ACETAMINOPHEN (*CRX) 5-325 MG TABLET 1 TABLET PO (20:20)
[2023-12-06 20:41] VITALS: BP 125/74; PULSE 90; RESP 16; TEMP 38.3; O2SAT 98
[2023-12-07 02:00] VITALS: TEMP 36.9
[2023-12-07] MEDS: HYDROmorphone HCL INJ (*CRX) 1 MG/ML SYR 0.5 MG IV PUSH (02:12)
--- NOTE | 2023-12-07 04:12 | P.PNCROSS_ITS ---
Event Note Event Note Event Note: I was called by nurse to evaluate rash. Patient is developing a rash on back m ost significantly in the right lower extremity posteriorally. Possibly secondary to dilaudid, unclear at this time. will give PRN benadryl for the rash
[2023-12-07] MEDS: diphenhydrAMINE HCl CAP 25 MG CAPSULE 50 MG PO (04:21)
[2023-12-07 05:49] VITALS: BP 107/57; PULSE 79; RESP 14; TEMP 36.1; O2SAT 95
[2023-12-07 09:09] VITALS: BP 126/69; PULSE 85; O2SAT 97
[2023-12-07] MEDS: lamoTRIgine 100 MG TABLET PO ×2 (09:10→20:50)
[2023-12-07] MEDS: AMITRIPTYLINE HCL 25 MG TABLET 50 MG PO (09:10)
[2023-12-07] MEDS: RALOXIFENE HCL (*CHEMO) 60 MG TABLET PO (09:10)
[2023-12-07] MEDS: ACIDOPHILUS/BULGARICUS CHEWABLE TABLET 1 TABLET PO ×4 (09:10→20:50)
[2023-12-07] MEDS: hydroCHLOROthiazide 12.5 MG CAPSULE PO (09:10)
[2023-12-07] MEDS: lamoTRIgine 50 MG TABLET PO ×2 (09:11→20:50)
[2023-12-07] MEDS: DOXYCYCLINE HYCLATE 100 MG TABLET PO ×2 (09:11→20:51)
[2023-12-07] MEDS: lisinopriL 20 MG TABLET PO (09:11)
[2023-12-07] MEDS: CEFDINIR 300 MG CAPSULE PO ×2 (09:11→20:51)
[2023-12-07] MEDS: ENOXAPARIN 40 MG/0.4 ML SYRINGE SUB-Q (09:11)
[2023-12-07] MEDS: diphenhydrAMINE HCl INJ 50 MG/ML VIAL 25 MG IV PUSH ×3 (09:12→20:53)
[2023-12-07] MEDS: FAMOTIDINE 20 MG/2 ML VIAL IV PUSH ×2 (09:13→20:53)
[2023-12-07] MEDS: methylPREDNISolone SOD SUCC 40 MG VIAL IV PUSH (09:15)
[2023-12-07] MEDS: GENTAMICIN SULFATE 0.1% CR 15 GM TUBE 1 APPLIC TOPICAL (09:16)
[2023-12-07] MEDS: BETAMETHASONE/CLOTRIMAZOLE CREAM 45 GM TUBE 1 APPLIC TOPICAL (09:16)
--- NOTE | 2023-12-07 10:32 | PCNWS ---
Weekly nutritional screen. Patient is tolerating current diet with adequate intake, 90-100% on regular diet. No weight loss reported. No nutritional needs at this time.
[2023-12-07] MEDS: CENTRAL LINE FLUSH 10 ML IV PUSH ×2 (13:26→20:54)
[2023-12-07 14:00] VITALS: BP 120/60; PULSE 86; RESP 16; TEMP 36.4; O2SAT 100
--- NOTE | 2023-12-07 16:46 | PM.IMPN ---
Progress Note: A&P Assessment and Plan (1) Sepsis: Code(s): A41.9 - Sepsis, unspecified organism Status: Acute Assessment and Plan: Patient met sepsis criteria with fever, pulse 103, respiratory rate 20, WBC 13.0 from cellulitis, acute appendicitis, and UTI UCx growing EColi that is clement sensitive. BCx NGTD Was on Cefepime, Flagyl, clinda and Vancomycin pt transitioned to oral doxycycline (2) Cellulitis: Qualifiers: Laterality: right Site of cellulitis: extremity Site of cellulitis of extremity: lower extremity Qualified Code(s): L03.115 - Cellulitis of right lower limb Code(s): L03.90 - Cellulitis, unspecified Status: Acute Assessment and Plan: Extensive cellulitis from the groin to the ankle of her right leg with erythema, warmth, tenderness, swelling that is becoming circumferential Repeat CT showing no absces. Wound care and GenSurg following. They may try to drain some of the bullae today and wrap (3) Appendicitis: Qualifiers: Appendicitis type: unspecified Qualified Code(s): K37 - Unspecified appendicitis Code(s): K37 - Unspecified appendicitis Status: Acute Assessment and Plan: CT of the abdomen pelvis showed acute appendicitis. Treating conservatively with IV antibiotics No surgical intervention needed at this time, general surgery following Follow (4) Acute UTI: Code(s): N39.0 - Urinary tract infection, site not specified Status: Acute Assessment and Plan: UA is consistent with UTI. UCx collected. Abx started. UCx pansensitive EColi and completed a course. (5) Rash: Code(s): R21 - Rash and other nonspecific skin eruption Status: Acute Assessment and Plan: hival rash IV steroids, iv pepcid and iv benadryl started long discussion will take 2-3 days to improve maybe 5-7 to resolve NO MORE DILAUDID PLEASE PT HAVING ALLERGIES TO DILAUDID Plan Code status: Full code DVT prophylaxis: Lovenox Subjective Date/time seen: 12/07/23 16:46 Interval history: 68yo female with HTN, breast CA and hx of ruptures brain aneurysm here for right leg edema and erythema. pt here for cellulitis of her leg pt was given Dilaudid IV x2 yesterday her right leg broke out in a rash hival rash up leg and on abdomen long discussion about rash Review of Systems Review of Systems: anxious itchy leg Exam Narrative: Generally: pt is upset Chest - bibasilar crackles, nml RR CV - RRR S1/S2 Abd - Soft, NT/ND, Positive BS Ext - RLE edema and beefy red erythema with large bullae posterior and medial calf. Erythema is receding from marked lines. warm to touch hival rash from bottom of her right leg up to her abdomen Psych - Nml mood and affect Skin - Warm and dry Objective Data Vital Signs Vital Signs: Vital Signs - 24 hr 12/06/23 20:41 12/06/23 20:00 12/07/23 02:00 Temperature 38.3 C H 36.9 C Pulse Rate 90 Respiratory Rate 16 Blood Pressure 125/74 Pulse Oximetry 98 Oxygen Delivery Room Air 12/07/23 05:49 12/07/23 09:09 12/07/23 09:10 Temperature 36.1 C L Pulse Rate 79 85 Respiratory Rate 14 Blood Pressure 107/57 L 126/69 Pulse Oximetry 95 97 Oxygen Delivery Room Air 12/07/23 14:00 Temperature 36.4 C L Pulse Rate 86 Respiratory Rate 16 Blood Pressure 120/60 Pulse Oximetry 100 Oxygen Delivery Intake/Output Intake/Output: Intake & Output 12/04/23 12/05/23 12/06/23 12/07/23 23:59 23:59 23:59 23:59 Intake Total 3510 1540 1680 1030 Output Total 900 1000 Balance 3510 1540 780 30 Meds/Results Medications: Active Medications Generic Name Dose Route Start Last Admin Trade Name Freq PRN Reason Stop Dose Admin Alteplase, Recombinant 2 mg 12/03/23 20:07 12/04/23 18:22 Alteplase 2 Mg Vial (Cathflo) IV PUSH 2 mg ONCE PRN Administration Line Occlusion Amitriptyline HCl 50 mg 12/01/23
[2023-12-07] MEDS: methylPREDNISolone SOD SUCC 40 MG VIAL 20 MG IV PUSH (18:27)
[2023-12-07] MEDS: oxyCODONE/ACETAMINOPHEN (*CRX) 5-325 MG TABLET 1 TABLET PO (19:29)
[2023-12-07] MEDS: BENZOCAINE/MENTHOL (*BKC) 18 EA LOZENGE 1 LOZENGE PO (20:50)
[2023-12-07 20:59] VITALS: BP 132/72; PULSE 91; RESP 17; TEMP 36.3; O2SAT 91
[2023-12-08] MEDS: diphenhydrAMINE HCl INJ 50 MG/ML VIAL 25 MG IV PUSH (02:25)
[2023-12-08 06:00] VITALS: BP 118/93; PULSE 88; RESP 20; TEMP 36.1; O2SAT 100
[2023-12-08] MEDS: diphenhydrAMINE HCl CAP 25 MG CAPSULE 50 MG PO (06:10)
[2023-12-08] MEDS: CENTRAL LINE FLUSH 10 ML IV PUSH ×3 (06:10→21:51)
[2023-12-08 06:30] LABS: Basophils Absolute Auto 0.1 K/mm3 (0.0-0.1); Basophils Percent Auto 0.3 % (0.2-1.2); Eosinophils Percent Auto 0.1 % (0-4.4); Hematocrit 35.9 % (37.0-47.0); Hemoglobin 11.8 g/dL (12.0-15.0); Immature Granulocyte Absolute 0.22 K/mm3 (0.00-0.031); Immature Granulocyte Percent A 1.1 % (0-0.5); Lymphocytes Absolute Auto 1.47 K/mm3 (0.9-3.2); Lymphocytes Percent Auto 7.5 % (18.3-44.2); Mean Corpuscular HGB Conc 32.9 g/dl (32-36); Mean Corpuscular Hemoglobin 30.3 pg (26-34); Mean Corpuscular Volume 92.3 fl (80-100); Mean Platelet Volume 8.2 fl (7.4-10.4); Monocytes Absolute Auto 1.1 K/mm3 (0.1-0.6); Monocytes Percent Auto 5.4 % (2.6-8.5); Neutrophils Absolute Auto 16.9 K/mm3 (1.3-6.7); Neutrophils Percent Auto 85.6 % (45.5-73.1); Platelet Count Result 494 k/mm3 (150-375); Red Blood Count 3.89 M/mm3 (4.2-5.4); Red Cell Distribution Width 13.6 % (11.5-14.5); White Blood Count 19.7 K/mm3 (4.5-10.0)
[2023-12-08 06:49] LABS: Alanine Aminotransferase 148 U/L (6-35); Albumin Level 3.2 g/dL (3.5-5.1); Alkaline Phosphatase 117 U/L (38-126); Anion Gap 8 mmol/L (4-12); Aspartate Amino Transferase 210 U/L (14-36); Bilirubin,Total 0.4 mg/dL (0.2-1.3); Blood Urea Nitrogen 13 mg/dL (7-17); Calcium 8.6 mg/dL (8.4-10.2); Carbon Dioxide 28 mmol/L (22-30); Chloride 97 mmol/L (98-107); Estimated CRCL calculation 74 ml/min; Estimated Glomerular Filt Rate > 60; Glucose 110 mg/dL (65-110); Potassium 4.1 mmol/L (3.4-5.0); Sodium 133 mmol/L (137-145)
--- NOTE | 2023-12-08 09:39 | PCNWS ---
Weekly nutritional screen. Patient is tolerating current Regular diet with adequate intake at 50-100% of meals. No weight loss reported. No nutritional needs at this time.
[2023-12-08] MEDS: lamoTRIgine 50 MG TABLET PO ×2 (11:09→21:50)
[2023-12-08] MEDS: AMITRIPTYLINE HCL 25 MG TABLET 50 MG PO (11:09)
[2023-12-08] MEDS: lamoTRIgine 100 MG TABLET PO ×2 (11:09→21:50)
[2023-12-08] MEDS: ACIDOPHILUS/BULGARICUS CHEWABLE TABLET 1 TABLET PO ×4 (11:09→21:50)
[2023-12-08] MEDS: RALOXIFENE HCL (*CHEMO) 60 MG TABLET PO (11:09)
[2023-12-08] MEDS: lisinopriL 20 MG TABLET PO (11:10)
[2023-12-08] MEDS: hydroCHLOROthiazide 12.5 MG CAPSULE PO (11:10)
[2023-12-08] MEDS: DOXYCYCLINE HYCLATE 100 MG TABLET PO ×2 (11:10→21:49)
[2023-12-08] MEDS: LORATADINE 10 MG TABLET PO (11:10)
[2023-12-08] MEDS: diphenhydrAMINE HCl INJ 50 MG/ML VIAL IV PUSH ×2 (11:11→21:50)
[2023-12-08] MEDS: FAMOTIDINE 20 MG/2 ML VIAL IV PUSH ×2 (11:12→21:52)
[2023-12-08] MEDS: methylPREDNISolone SOD SUCC 40 MG VIAL 20 MG IV PUSH ×2 (11:13→18:21)
[2023-12-08] MEDS: GENTAMICIN SULFATE 0.1% CR 15 GM TUBE 1 APPLIC TOPICAL (11:15)
[2023-12-08] MEDS: BETAMETHASONE/CLOTRIMAZOLE CREAM 45 GM TUBE 1 APPLIC TOPICAL (11:15)
[2023-12-08] MEDS: ENOXAPARIN 40 MG/0.4 ML SYRINGE SUB-Q (11:17)
--- NOTE | 2023-12-08 12:36 | PM.IMPN ---
Progress Note: A&P Assessment and Plan (1) Sepsis: Code(s): A41.9 - Sepsis, unspecified organism Status: Acute Assessment and Plan: Patient met sepsis criteria with fever, pulse 103, respiratory rate 20, WBC 13.0 from cellulitis, acute appendicitis, and UTI UCx growing EColi that is clement sensitive. BCx NGTD Was on Cefepime, Flagyl, clinda and Vancomycin iv pt transitioned to oral doxycycline only now (2) Cellulitis: Qualifiers: Laterality: right Site of cellulitis: extremity Site of cellulitis of extremity: lower extremity Qualified Code(s): L03.115 - Cellulitis of right lower limb Code(s): L03.90 - Cellulitis, unspecified Status: Acute Assessment and Plan: Extensive cellulitis from the groin to the ankle of her right leg with erythema, warmth, tenderness, swelling that is becoming circumferential Repeat CT showing no absces. Wound care and GenSurg following. They may try to drain some of the bullae today and wrap (3) Appendicitis: Qualifiers: Appendicitis type: unspecified Qualified Code(s): K37 - Unspecified appendicitis Code(s): K37 - Unspecified appendicitis Status: Acute Assessment and Plan: CT of the abdomen pelvis showed acute appendicitis. Treating conservatively with IV antibiotics No surgical intervention needed at this time, general surgery following Follow (4) Acute UTI: Code(s): N39.0 - Urinary tract infection, site not specified Status: Acute Assessment and Plan: UA is consistent with UTI. UCx collected. Abx started. UCx pansensitive EColi and completed a course. (5) Rash: Code(s): R21 - Rash and other nonspecific skin eruption Status: Acute Assessment and Plan: Hival rash IV steroids, iv pepcid and iv benadryl started long discussion with pt NO MORE DILAUDID PLEASE PT HAVING ALLERGIES TO DILAUDID Unfortunately rash is worsening despite out medical therapies here i will try to transfer to [facility] for higher level of care Pt informed. Naresh will go a discuss about the IV ABX she has used earlier in the admission for pts information. Plan Code status: Full code DVT prophylaxis: Lovenox Subjective Date/time seen: 12/08/23 12:36 Interval history: 68yo female with HTN, breast CA and hx of ruptures brain aneurysm here for right leg edema and erythema. 12/06 pt here for cellulitis of her leg pt was given Dilaudid IV x2 yesterday her right leg broke out in a rash hival rash up leg and on abdomen long discussion about rash, iv steroids, iv pepcid, iv benadryl ordered 12/07 rash looks worse up her right leg on her abdomen chest back and down her left leg pt is on doxycycline oral all other abx are stopped, pt is on hctz, lamtical and raloxene for her htn, seizures and breast cancer. Wound care to review gauze dressing around leg and picc line dressing to clean one. D/W medical colleagues fellow colleague Dr Lang and DR Ryan have decided to transfer to pt to [facility] for dermatology care D/w [facility] transfer line Liver function higher today also wcc higher- this maybe due to steroid seffect Review of Systems Review of Systems: ongoing worsening rash Exam Narrative: Generally: pt is upset and anxious Chest - clear lungs CV - RRR S1/S2 Abd - Soft, NT/ND, Positive BS Ext - RLE edema and beefy red erythema with large bullae posterior and medial calf. Erythema is receding from marked lines. warm to touch hival rash from bottom of her right leg up to her abdomen over chest over back now going down her left thigh Psych - Nml mood and affect Skin - Warm and dry Objective Data Vital Signs Vital Signs: Vital Signs - 24 hr 12/07/23 14:00 12/07/23 20:59 12/07/23 20:00 Temperature 36.4 C L 36.3 C L Pulse Rate 86 91 Respiratory Rate 16 17 Blood Pressure 120/60 132/72 Pulse Oximetry 100 91 Oxygen Delivery Room Air 12/08/23 0
[2023-12-08 14:00] VITALS: BP 125/57; PULSE 90; RESP 20; TEMP 35.9; O2SAT 100
[2023-12-08] MEDS: IBUPROFEN 400 MG TABLET 800 MG PO (21:49)
[2023-12-08 22:00] VITALS: BP 136/68; PULSE 84; RESP 18; TEMP 36; O2SAT 98
[2023-12-08 22:04] LABS: Lyme AB Screen <0.90 INDEX
[2023-12-09 05:38] VITALS: BP 121/70; PULSE 84; RESP 18; TEMP 36.4; O2SAT 99
[2023-12-09] MEDS: CENTRAL LINE FLUSH 10 ML IV PUSH ×4 (06:01→21:32)
[2023-12-09] MEDS: diphenhydrAMINE HCl INJ 50 MG/ML VIAL IV PUSH ×2 (06:01→13:32)
[2023-12-09 06:25] LABS: Basophils Absolute Auto 0.1 K/mm3 (0.0-0.1); Basophils Percent Auto 0.3 % (0.2-1.2); Eosinophils Percent Auto 0.1 % (0-4.4); Hematocrit 34.3 % (37.0-47.0); Hemoglobin 11.5 g/dL (12.0-15.0); Immature Granulocyte Absolute 0.18 K/mm3 (0.00-0.031); Immature Granulocyte Percent A 1.1 % (0-0.5); Lymphocytes Absolute Auto 1.95 K/mm3 (0.9-3.2); Lymphocytes Percent Auto 12.1 % (18.3-44.2); Mean Corpuscular HGB Conc 33.5 g/dl (32-36); Mean Corpuscular Hemoglobin 30.8 pg (26-34); Neutrophils Percent Auto 80.4 % (45.5-73.1); Platelet Count Result 454 k/mm3 (150-375); Red Blood Count 3.73 M/mm3 (4.2-5.4); Red Cell Distribution Width 13.8 % (11.5-14.5); White Blood Count 16.2 K/mm3 (4.5-10.0)
[2023-12-09 06:52] LABS: Alanine Aminotransferase 146 U/L (6-35); Albumin Level 3.1 g/dL (3.5-5.1); Alkaline Phosphatase 100 U/L (38-126); Anion Gap 5 mmol/L (4-12); Aspartate Amino Transferase 148 U/L (14-36); Bilirubin,Total 0.4 mg/dL (0.2-1.3); Blood Urea Nitrogen 14 mg/dL (7-17); Calcium 8.7 mg/dL (8.4-10.2); Carbon Dioxide 29 mmol/L (22-30); Chloride 100 mmol/L (98-107); Estimated CRCL calculation 65 ml/min; Estimated Glomerular Filt Rate > 60; Glucose 99 mg/dL (65-110); Potassium 4.1 mmol/L (3.4-5.0); Sodium 134 mmol/L (137-145)
--- NOTE | 2023-12-09 08:39 | PM.IMPN ---
Progress Note: A&P Assessment and Plan (1) Sepsis: Code(s): A41.9 - Sepsis, unspecified organism Status: Acute Assessment and Plan: Patient met sepsis criteria with fever, pulse 103, respiratory rate 20, WBC 13.0 from cellulitis, acute appendicitis, and UTI UCx growing EColi that is clement sensitive. BCx NGTD Was on Cefepime, Flagyl, clinda and Vancomycin iv pt transitioned to oral doxycycline only now (2) Rash: Code(s): R21 - Rash and other nonspecific skin eruption Status: Acute Assessment and Plan: Diffuse maculopapular rash from suspected drug reaction: possible insults include lamitical with concurrent cefdinir, Dilaudid. Rash started on the evening of 12/06 after receiving Dilaudid. -drug allergies updated -started on steroids BID -all antibiotics stopped except doxycycline -she has shown improvement in the last 24 hours -initially she was worked up for [facility] transfer but she is feeling better, her rash is resolving. I will call and speak with dermatology at [facility] today and cancel transfer. (3) Cellulitis: Qualifiers: Laterality: right Site of cellulitis: extremity Site of cellulitis of extremity: lower extremity Qualified Code(s): L03.115 - Cellulitis of right lower limb Code(s): L03.90 - Cellulitis, unspecified Status: Acute Assessment and Plan: Extensive cellulitis from the groin to the ankle of her right leg with erythema, warmth, tenderness, swelling that is becoming circumferential Repeat CT showing no abscess. Wound care and GenSurg following Cellulitis is improving per wound care and patient On doxycycline Daily dressing changes (4) Appendicitis: Qualifiers: Appendicitis type: unspecified Qualified Code(s): K37 - Unspecified appendicitis Code(s): K37 - Unspecified appendicitis Status: Acute Assessment and Plan: CT of the abdomen pelvis showed acute appendicitis. Treating conservatively with IV antibiotics No surgical intervention needed at this time, general surgery following Having bowel movements, no abdominal pain Tolerating a diet (5) Acute UTI: Code(s): N39.0 - Urinary tract infection, site not specified Status: Acute Assessment and Plan: UA is consistent with UTI. UCx collected. Abx started. UCx pansensitive EColi and completed a course. completed antibiotics. RESOLVED Plan Code status: Full code DVT prophylaxis: Lovenox Subjective Date/time seen: 12/09/23 08:39 Interval history: 68yo female with HTN, breast CA and hx of ruptures brain aneurysm here for right leg edema and erythema. 12/08: Assuming care. Chart reviewed. She has had a long hospitalization with cellulitis of her right lower leg. Then on the evening of 12/06 she developed a diffuse maculopapular rash to her right leg that spread throughout the right side of her chest and back then traveling down the left side of her body. It is difficult to say what initiated the rash but it has been suspected to be a drug reaction from dilaudid vs cefdinir. She states she feels great today. This is the first day she has felt this well since admission. Her rash is resolving, her itching has subsided, and she is feeling like going home. Wound care changed her dressing while I was present and according to their reports her cellulitis is improving and her maculopapular rash has decreased as well. Review of Systems Review of Systems: All systems reviewed & are unremarkable except as noted in HPI and below Exam Narrative: General: well appearing, appears stated age. HEENT: normocephalic, atraumatic. Mucous membranes moist. EOMI, PERRLA, bilateral sclera anicteric, no conjunctival injection. Neck supple without JVD, lymphadenopathy, or bruit. Respiratory: clear to auscultation bilaterally. No rales/rhonic/wheezes. Cardiovascular: Regular rate and rhythm, normal S1-S2 upon auscultation. No murmurs, rub
[2023-12-09] MEDS: FAMOTIDINE 20 MG/2 ML VIAL IV PUSH ×2 (08:49→21:18)
[2023-12-09] MEDS: methylPREDNISolone SOD SUCC 40 MG VIAL 20 MG IV PUSH ×2 (08:49→17:34)
[2023-12-09] MEDS: AMITRIPTYLINE HCL 25 MG TABLET 50 MG PO (08:50)
[2023-12-09] MEDS: ACIDOPHILUS/BULGARICUS CHEWABLE TABLET 1 TABLET PO ×4 (08:51→21:15)
[2023-12-09] MEDS: lamoTRIgine 50 MG TABLET PO ×2 (08:51→21:16)
[2023-12-09] MEDS: lamoTRIgine 100 MG TABLET PO ×2 (08:51→21:16)
[2023-12-09] MEDS: lisinopriL 20 MG TABLET PO (08:51)
[2023-12-09] MEDS: LORATADINE 10 MG TABLET PO (08:51)
[2023-12-09] MEDS: hydroCHLOROthiazide 12.5 MG CAPSULE PO (08:52)
[2023-12-09] MEDS: RALOXIFENE HCL (*CHEMO) 60 MG TABLET PO (08:52)
[2023-12-09] MEDS: DOXYCYCLINE HYCLATE 100 MG TABLET PO ×2 (08:52→21:16)
[2023-12-09] MEDS: BETAMETHASONE/CLOTRIMAZOLE CREAM 45 GM TUBE 1 APPLIC TOPICAL (08:54)
[2023-12-09] MEDS: ENOXAPARIN 40 MG/0.4 ML SYRINGE SUB-Q (08:54)
[2023-12-09] MEDS: GENTAMICIN SULFATE 0.1% CR 15 GM TUBE 1 APPLIC TOPICAL (08:55)
[2023-12-09] MEDS: diphenhydrAMINE HCl CAP 25 MG CAPSULE 50 MG PO ×2 (08:56→21:16)
[2023-12-09 13:31] LABS: CRP 1.5 mg/dL (<1.0)
[2023-12-09 14:00] VITALS: BP 144/80; PULSE 93; RESP 16; TEMP 36.3; O2SAT 99
[2023-12-09 20:28] VITALS: BP 124/80; PULSE 85; RESP 18; TEMP 35.8; O2SAT 97
[2023-12-09] MEDS: IBUPROFEN 400 MG TABLET PO (21:16)
[2023-12-10 05:38] VITALS: BP 119/74; PULSE 80; RESP 14; TEMP 36.3; O2SAT 95
[2023-12-10] MEDS: IBUPROFEN 400 MG TABLET PO ×2 (06:20→13:04)
[2023-12-10] MEDS: diphenhydrAMINE HCl CAP 25 MG CAPSULE 50 MG PO ×2 (06:20→13:03)
[2023-12-10] MEDS: CENTRAL LINE FLUSH 10 ML IV PUSH (06:49)
[2023-12-10 06:51] LABS: Basophils Percent Auto 0.2 % (0.2-1.2); Eosinophils Absolute Auto 0.1 K/mm3 (0-0.3); Eosinophils Percent Auto 0.4 % (0-4.4); Hematocrit 33.4 % (37.0-47.0); Hemoglobin 11.2 g/dL (12.0-15.0); Immature Granulocyte Absolute 0.12 K/mm3 (0.00-0.031); Lymphocytes Absolute Auto 2.34 K/mm3 (0.9-3.2); Lymphocytes Percent Auto 19.1 % (18.3-44.2); Mean Corpuscular HGB Conc 33.5 g/dl (32-36); Mean Corpuscular Hemoglobin 31.1 pg (26-34); Mean Corpuscular Volume 92.8 fl (80-100); Mean Platelet Volume 8.1 fl (7.4-10.4); Monocytes Percent Auto 7.9 % (2.6-8.5); Neutrophils Absolute Auto 8.8 K/mm3 (1.3-6.7); Neutrophils Percent Auto 71.4 % (45.5-73.1); Platelet Count Result 437 k/mm3 (150-375); Red Cell Distribution Width 13.8 % (11.5-14.5); White Blood Count 12.3 K/mm3 (4.5-10.0)
[2023-12-10 07:08] LABS: Alanine Aminotransferase 100 U/L (6-35); Albumin Level 3.1 g/dL (3.5-5.1); Alkaline Phosphatase 93 U/L (38-126); Anion Gap 7 mmol/L (4-12); Aspartate Amino Transferase 69 U/L (14-36); Bilirubin,Total 0.4 mg/dL (0.2-1.3); Blood Urea Nitrogen 16 mg/dL (7-17); Calcium 8.6 mg/dL (8.4-10.2); Carbon Dioxide 27 mmol/L (22-30); Chloride 100 mmol/L (98-107); Estimated CRCL calculation 59 ml/min; Estimated Glomerular Filt Rate > 60; Glucose 97 mg/dL (65-110); Potassium 3.9 mmol/L (3.4-5.0); Sodium 134 mmol/L (137-145)
[2023-12-10] MEDS: DOXYCYCLINE HYCLATE 100 MG TABLET PO (08:02)
[2023-12-10] MEDS: RALOXIFENE HCL (*CHEMO) 60 MG TABLET PO (08:02)
[2023-12-10] MEDS: FAMOTIDINE 20 MG/2 ML VIAL IV PUSH (08:02)
[2023-12-10] MEDS: LORATADINE 10 MG TABLET PO (08:02)
[2023-12-10] MEDS: lisinopriL 20 MG TABLET PO (08:02)
[2023-12-10] MEDS: lamoTRIgine 50 MG TABLET PO (08:02)
[2023-12-10] MEDS: ENOXAPARIN 40 MG/0.4 ML SYRINGE SUB-Q (08:02)
[2023-12-10] MEDS: AMITRIPTYLINE HCL 25 MG TABLET 50 MG PO (08:02)
[2023-12-10] MEDS: methylPREDNISolone SOD SUCC 40 MG VIAL 20 MG IV PUSH (08:02)
[2023-12-10] MEDS: lamoTRIgine 100 MG TABLET PO (08:03)
[2023-12-10] MEDS: ACIDOPHILUS/BULGARICUS CHEWABLE TABLET 1 TABLET PO ×2 (08:03→13:03)
[2023-12-10] MEDS: BETAMETHASONE/CLOTRIMAZOLE CREAM 45 GM TUBE 1 APPLIC TOPICAL (08:03)
[2023-12-10] MEDS: hydroCHLOROthiazide 12.5 MG CAPSULE PO (08:03)
[2023-12-10] MEDS: GENTAMICIN SULFATE 0.1% CR 15 GM TUBE 1 APPLIC TOPICAL (08:03)
--- NOTE | 2023-12-10 11:13 | PM.DS ---
DS: Admitting Diagnosis Discharge Date 12/09 Admitting Diagnosis cellulitis DS: Discharge Diagnosis Discharge Diagnosis (1) Sepsis: Code(s): A41.9 - Sepsis, unspecified organism Status: Acute Assessment and Plan: Patient met sepsis criteria with fever, pulse 103, respiratory rate 20, WBC 13.0 from cellulitis, acute appendicitis, and UTI UCx growing EColi that is clement sensitive. BCx NGTD Was on Cefepime, Flagyl, clinda and Vancomycin iv pt transitioned to oral doxycycline only now (2) Rash: Code(s): R21 - Rash and other nonspecific skin eruption Status: Acute Assessment and Plan: Diffuse maculopapular rash from suspected drug reaction: possible insults include lamitical with concurrent cefdinir, Dilaudid. Rash started on the evening of 12/06 after receiving Dilaudid. -drug allergies updated -started on steroids BID -all antibiotics stopped except doxycycline -she has shown improvement in the last 24 hours -initially she was worked up for [facility] transfer but she is feeling better, her rash is resolving. I will call and speak with [facility]ology [facility] today and cancel transfer. (3) Cellulitis: Qualifiers: Laterality: right Site of cellulitis: extremity Site of cellulitis of extremity: lower extremity Qualified Code(s): L03.115 - Cellulitis of right lower limb Code(s): L03.90 - Cellulitis, unspecified Status: Acute Assessment and Plan: Extensive cellulitis from the groin to the ankle of her right leg with erythema, warmth, tenderness, swelling that is becoming circumferential Repeat CT showing no abscess. Wound care and GenSurg following Cellulitis is improving per wound care and patient On doxycycline Daily dressing changes (4) Appendicitis: Qualifiers: Appendicitis type: unspecified Qualified Code(s): K37 - Unspecified appendicitis Code(s): K37 - Unspecified appendicitis Status: Acute Assessment and Plan: CT of the abdomen pelvis showed acute appendicitis. Treating conservatively with IV antibiotics No surgical intervention needed at this time, general surgery following Having bowel movements, no abdominal pain Tolerating a diet (5) Acute UTI: Code(s): N39.0 - Urinary tract infection, site not specified Status: Acute Assessment and Plan: UA is consistent with UTI. UCx collected. Abx started. UCx pansensitive EColi and completed a course. completed antibiotics. RESOLVED Plan Code status: Full code DVT prophylaxis: Lovenox DS: Summary Hospital Course Reason for hospitalization: cellulitis Hospital Course: 68-year-old female with HTN, breast CA and hx of ruptured brain aneurysm here for right leg edema and erythema. She was initially admitted on 11/29 after she notice redness, swelling, pain to her right thigh with redness that traveled down to her lower extremity. She was also having fever and chills with intermittent abdominal pain to her umbilicus. Upon arrival to ED, patient had low-grade fever 99.3, leukocytosis 15,[address] scan of her abdomen and pelvis suggest early acute appendicitis. CT scan also showed subcutaneous gas stranding in the inguinal region, soft tissue edema in the popliteal fossa. Her urine was concerning for an infection and grew pansensitive E coli. Blood cultures negative. A venous Doppler was preformed and negative for DVT. CTA of her chest was negative for PE or cardiopulmonary disease. She was started on cefepime, Flagyl, clindamycin, and vancomycin. She was also worked up for possible tick borne illness and doxycycline was started. She required placement of a right upper arm central line for labs and IV antibiotics. This was discontinued prior to discharge. General surgery was consulted for possible appendicitis. They recommended conservative treatment with antibiotics and bowel rest. They also weighed in on her right lower e
[2023-12-22 21:13] LABS: Lamotrigine Lamictal 6.1 mcg/mL (2.5-15.0)
== END 2023-12-10 14:40 | disposition home or self-care (01) | DRG 872 ==
LOC: ANHED 11-30 08:56 → ANH3MEDSUR 11-30 09:37
PROVIDERS: Family Medicine; Internal Medicine; Nurse Practitioner Acute Care; Nurse Practitioner Family; Admitting Provider Hospitalist; Emergency Provider Student in an Organized Health Care Education/Training Program; PCP Internal Medicine; Visit Provider Nurse Practitioner Acute Care
DX: A41.9 Sepsis, unspecified organism (principal); L03.115 Cellulitis of right lower limb; K35.80 Unspecified acute appendicitis; N39.0 Urinary tract infection, site not specified; B96.20 Unspecified Escherichia coli [E. coli] as the cause of diseases classified elsewhere; L27.1 Localized skin eruption due to drugs and medicaments taken internally; T36.1X5A Adverse effect of cephalosporins and other beta-lactam antibiotics, initial encounter; T42.6X5A Adverse effect of other antiepileptic and sedative-hypnotic drugs, initial encounter; T40.2X5A Adverse effect of other opioids, initial encounter; Z85.3 Personal history of malignant neoplasm of breast
CPT/HCPCS: 36415; 36569; 71275; 73701; 74176; 80048; 80053; 80175; 80202; 81001; 82550; 82565; 83605; 83690; 83735; 84484; 85025; 85380; 85610; 85730; 86140; 87040; 87077; 87086; 87088; 87186; 93005; 93971; 96365; 96366; 96372; 99285; A9270; G0378; J0692; J0696; J1170; J1200; J1650; J1836; J2405; J2919; J2997; J3370; J7042; Q9967